=== PATIENT | female | born 1950 | race Caucasian/White ===

== ENCOUNTER → 2022-10-11 | Outpatient (OUT) | payer MEDICARE, OTHER, SELFPAY ==
--- NOTE | 2022-10-11 09:35 | XR_ITS ---
The [address] [address] Patient Name: TALIA ACKERMAN MRN: [id number] date: 1950 Sex: F Assigned Patient Location: [facility] Current Patient Location: [facility] Accession/Order Number: [id number] Exam Date: 10/11/2022 09:35 Report Date: 10/11/2022 13:32 At the request of: MANAV VASQUEZ Procedure: XR foot RT min 3V PROCEDURE: XR foot RT min 3V HISTORY: RIGHT FOOT PAIN COMPARISON: XR foot right 03/09/2022 FINDINGS: BONES:Mechanical fusion of the first metatarsophalangeal joint via dorsal plate and screws. Prosthetic spacer within first metatarsophalangeal joint. Prior bone harvesting from distal tibia. Mild degenerative joint disease throughout the foot. Degenerative calcaneal plantar spurring. SOFT TISSUES:No visible soft tissue swelling. EFFUSION:None visible. OTHER: Negative. IMPRESSION: 1. Stable surgical changes without evidence of hardware failure or change in alignment. Electronically authenticated by: DOMENIC MORGAN Date: 10/11/2022 13:32
== END ==
LOC: RAD 09:34
PROVIDERS: PCP Podiatrist Foot & Ankle Surgery; Visit Provider Podiatrist Foot & Ankle Surgery
DX: M79.671 Pain in right foot (principal)
CPT/HCPCS: 73630

== ENCOUNTER 2023-01-16 13:00 | Outpatient (OUT) | payer MEDICARE, OTHER, SELFPAY ==
--- NOTE | 2023-01-16 13:52 | CT_ITS ---
The [address] [address] Patient Name: TALIA ACKERMAN MRN: [id number] date: 1950 Sex: F Assigned Patient Location: CT Current Patient Location: CT Accession/Order Number: [id number] Exam Date: 01/16/2023 13:46 Report Date: 01/16/2023 14:43 At the request of: MANAV VASQUEZ Procedure: CT foot RT wo con CT foot RT wo con, 01/16/2023 1:46 PM EDT INDICATION: Hallux rigidus, right foot M20.21 COMPARISON: This study was compared to the prior x-ray dated 10/11/2022 TECHNIQUE: Axial images of 2 mm are obtained from right foot with coronal and sagittal reconstructions and without injection of contrast. Dose reduction techniques were achieved by using automated exposure control and/or adjustment of mA and/or kV according to patient size and/or use of iterative reconstruction technique. FINDINGS: There is status post right metatarsophalangeal joint ankylosis with spacer insertion. No hardware fracture or loosening is noted. The tip of the screws through the proximal phalanx and the distal first metatarsal bones exceed the inferior cortex. There is no fracture or dislocation. Defect within the distal tibial likely due to prior harvesting. There is diffuse demineralization of bone. There are anterior and posterior calcaneal spurs. Angular deformity of the second through fourth toes is noted. There is not soft tissue abnormality. No foreign bodies are noted. The remainder of joint spaces are preserved. 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 Electronically authenticated by: HARISH CASTAÑEDA Date: 01/16/2023 14:43
== END 2023-01-16 13:01 | disposition home or self-care (01) ==
LOC: CT 13:00
PROVIDERS: PCP Student in an Organized Health Care Education/Training Program; Visit Provider Podiatrist Foot & Ankle Surgery
DX: M20.21 Hallux rigidus, right foot (principal)
CPT/HCPCS: 73700

== ENCOUNTER 2024-01-30 10:38 | Outpatient (OUT) | payer MEDICARE, OTHER, SELFPAY ==
--- NOTE | 2024-01-30 | XR_ITS ---
The [address] [address] Patient Name: TALIA ACKERMAN MRN: [id number] date: 1950 Sex: F Assigned Patient Location: Current Patient Location: Accession/Order Number: [id number] Exam Date: 01/30/2024 10:55 Report Date: 02/01/2024 05:34 At the request of: MANAV VASQUEZ Procedure: XR foot RT min 3V PROCEDURE: XR foot RT min 3V HISTORY: RIGHT FOOT PAIN COMPARISON: XR foot right 10/11/2022 FINDINGS: BONES:Prior spacer placement and mechanical fusion of the first metatarsophalangeal joint; no appreciable hardware fracture or loosening. Prominent degenerative enthesopathic spurring of the calcaneus. SOFT TISSUES:No visible soft tissue swelling. EFFUSION:None visible. OTHER: Negative. XR/XR foot RT min 3V IMPRESSION: 1. Stable surgical changes without evidence of hardware failure or change in alignment. 2. Stable degenerative changes. Electronically authenticated by: DOMENIC MORGAN Date: 02/01/2024 05:34
== END 2024-01-30 10:39 | disposition home or self-care (01) ==
LOC: EC 10:38
PROVIDERS: PCP Student in an Organized Health Care Education/Training Program; Visit Provider Podiatrist Foot & Ankle Surgery
DX: M79.671 Pain in right foot (principal)
CPT/HCPCS: 73630

== ENCOUNTER 2025-01-30 09:02 | Outpatient (OUT) | payer MEDICARE, SELFPAY ==
--- OUTSIDE RECORDS SUMMARY | 2025-01-29 06:00 | XMS_ITS ---
Author Organization The [facility] Address [address] [place] [address] Care Team Providers Care Precast Concrete Products Installer Name Role Phone Mignon Diallo MD Primary Care Provider Addison Albright [phone] REASON FOR VISIT 1 year f/u Encounters Encounter Location Date Provider Diagnosis The [facility] (PODIATRY) [address] [place] [address] [address] [place] [address] 01/29/2025 Addison Corral Plan Of Treatment No Information Progress Notes * Jackeline ACKERMANDOB: [birth year] (74 yo F)Acc No.[id number]:01/29/2025 UNLOCKED PROGRESS NOTE Follow Up Patient: Jackeline WHITLOCK Provider: Catrachito Corral DPM, MS :1950 A ge:74 Y S ex:Female Date:01/29/2025 Address:[address], [id number] Pcp:Mignon Diallo MD Subjective: * Chief Complaints: * 1 . 1 year f/u. * Medical History: Objective: * Vitals: Assessment: Plan: * Treatment: * * Electronic signature of Brian Corral DPM on 01/30/2025 at 09:06 AM EDT Sign off status: Pending Visit Status: O FF CANC (OFFICE CANCEL) * Provider: Catrachito Corral DPM, MS Date: 01/29/2025 Generated for Printi ng/Faxing/eTransmitting on: 0 01/30/2025 09:06 AM EDT
--- OUTSIDE RECORDS SUMMARY | 2025-01-30 09:06 | XMS_ITS | Encounter Summary ---
Author Organization [facility] Address [address] [place] [address] Care Team Providers Care Simulation Engineer Name Role Phone Felicia Doty MD Primary Care Provider + Mignon Diallo MD Primary Care Provider [phone] Encounter Details Date Type Department Care Team (Late st Contact Info) Description 10/11/2022 Clinisync Result Encounter [facility] External Department Unsolicited Teo Marie DO [address] [place] [address] Social History Tobacco Use Types Packs/Day Years Used Date Smoking Tobacco: Never Smokeless Tobacco: Never Alcohol Use Standard Drinks/Week Comments Yes 0 (1 standard drink = 0.6 oz pur e alcohol) Comments Unknown Sex and Gender Information Value Date Recorded Sex Assigned at Not on file Legal Sex Female 6:47 PM EDT Gender Identity Not on file Sexual Orientation Not on file documented as of this encounter Plan of Treatment Upcoming Encounters Date Type Department Care Team (Late st Contact Info) Description 10/30/2025 8:30 AM EDT Office Visit [facility] [address] [place] [id number] Teo Marie DO [address] [place] [address] documented as of this encounter Procedures Procedure Name Priority Date/Time Associated Diagnosis Comments CT UPPER EXTREMITY W/O CONTRAST RIGHT 10/11/2022 4:47 PM EDT documented in this encounter Results * CT UPPER EXTREMITY W/O CONTRAST RIGHT (10/11/2022 4:47 PM EDT) Anatomical Region Laterality Modality Other 10/11/2022 4:47 PM EDT Narrative 10/13/2022 5:11 PM EDT Exam Date/Time: 10/11/2022 17:01 EDT Reason for Exam: M75.101 M19.011 Report IMPRESSION: CT FOR SHOULDER PROSTHESIS CREATION. MODERATELY ADVANCED OSTEOARTHROSIS OF THE RIGHT SHOULDER. EXAM: CT Upper Extremity w/o Contrast Right DATE: 10/11/2022 CLINICAL HISTORY: M75.101 M19.011. COMPARISON: Right shoulder MRI 12/18/2019 and radiographs 11/25/2019. TECHNIQUE: Spiral unenhanced imaging was obtained of the right upperextremity for prosthesis creation, using Tornier protocol. All CT scans at this facility use dose modulation, iterative reconstruction, and/or weight based dosing when appropriate to reduce radiation dose to as low as reasonably achievable. FINDINGS: Moderate osteoarthritic changes are present in the acromioclavicular and glenohumeral joints. There is no fracture, dislocation, acromioclavicular joint separation, significant muscle atrophy narrowing of the subacromial space, pathologic calcifications, or other findings of concern identified elsewhere. Ordering Provider: Teo Marie FINAL REPORT Dictated: 10/13/2022 5:08 pm Cruz Everett MD Signed (Electronic Signature): 10/13/2022 5:08 pm Signed by: Cruz Everett MD Transcribed by: TRINA Technologist: TAMELA Procedure Note Radiology, Radiologist, - 10/13/2022 Exam Date/Time: 10/11/2022 17:01 EDT Reason for Exam: M75.101 M19.011 Report IMPRESSION: CT FOR SHOULDER PROSTHESIS CREATION. MODERATELY ADVANCED OSTEOARTHROSIS OF THE RIGHT SHOULDER. EXAM: CT Upper Extremity w/o Contrast Right DATE: 10/11/2022 CLINICAL HISTORY: M75.101 M19.011. COMPARISON: Right shoulder MRI 12/18/2019 and radiographs 11/25/2019. TECHNIQUE: Spiral unenhanced imaging was obtained of the rightupperextremity for prosthesis creation, using Tornier protocol. All CT scans at this facility use dose modulation, iterativereconstruction, and/or weight based dosing when appropriate to reduce radiation dose to as low asreasonably achievable. FINDINGS: Moderate osteoarthritic changes are present in the acromioclavicular andglenohumeral joints. There is no fracture, dislocation, acromioclavicular joint separation,significant muscle atrophy narrowing of the subacromial space, pathologiccalcifications, or other findings of concern identified elsewhere. Ordering Provider: Teo Marie FINAL REPORT Dictated: 10/13/2022 5:08 pm Cruz Everett MD Signed (Electronic Signature): 10/13/2022 5:08 pm Signed by: Cruz Everett MD Transcribed by: TRINA Technologist: TAMELA us Teo Marie DO [facility] Final Resu lt documented in this encounter Visit Diagnoses Not on filedocumented in this encounter Care Teams Simulation Engineer Relationship Specialty Start Date End Date Felicia Doty MD [address] [place] [address] PCP - General Physician Customer Technical Services Manager 09/29/22 11/14/22 Mignon Diallo MD [address] [place] [address] PCP - General Family Medicine 11/15/22 documented as of this encounter
--- OUTSIDE RECORDS SUMMARY | 2025-01-30 09:06 | XMS_ITS | Encounter Summary ---
Author Organization [facility] Address [address] [place] [address] Care Team Providers Care Windmill Technician Name Role Phone Mignon Diallo MD Primary Care Provider [phone] Encounter Details Date Type Department Care Team (Late st Contact Info) Description 11/25/2022 Abstract [facility] [place] [facility] [address] [place] [address] Mignon Diallo MD [address] [place] [address] Social History Tobacco Use Types Packs/Day Years Used Date Smoking Tobacco: Never Smokeless Tobacco: Never Alcohol Use Standard Drinks/Week Comments Yes 0 (1 standard drink = 0.6 oz pure alcohol) Caffeine intake: 1-2 cups per day green tea Humiliation, Afraid, Rape, and Kick questionnair e Answer Date Recorded Within the last year, have y ou been afraid of your partner or ex-partner? No 10/17/2022 Within the last year, have y ou been humiliated or emotionally abused in other ways by your partner or ex-partner? No Within the last year, have y ou been kicked, hit, slapped, or otherwise physically hurt by your partner or ex-partner? No 10/17/2022 Within the last year, have y ou been raped or forced to have any kind of sexual activity by your partner or ex-partner? No 10/17/2022 Social Connection and Isolat ion Panel [NHANES] Answer Date Recorded In a typical week, how many times do you talk on the phone with family, friends, or neighbors? More than three times a week 10/17/2022 How often do you get togethe r with friends or relatives? More than three times a week 10/17/2022 How often do you attend chur or catholic services? More than 4 times per year 10/17/2022 Do you belong to any clubs o r organizations such as alevism groups, unions, fraternal or athletic groups, or school groups? Yes 10/17/2022 How often do you attend meet ings of the clubs or organizations you belong to? More than 4 times per year 10/17/2022 Are you , , di vorced, , never , or living with a partner? 10/17/2022 AUDIT-C Answer Date Recorded Q1: How often do you have a drink containing alcohol? 4 or more times a week 10/17/2022 Q2: How many drinks containi ng alcohol do you have on a typical day when you are drinking? 3 or 4 Q3: How often do you have si x or more drinks on one occasion? Never 10/17/2022 Overall Financial Resource Strain (CARDIA) Answe r Date Recorded How hard is it for you to pa y for the very basics like food, housing, medical care, and heating? Not hard at all 10/17/2022 PHQ-2 Answer Date Recorded Patient Health Questionnaire-2 Score 0 11/15/2022 [facility] - Occupational Stress Questionnaire Answer Date Recorded Do you feel stress - tense, restless, nervous, or anxious, or unable to sleep at night because your mind is troubled all the time - these days? Not at all 10/17/2022 Exercise Vital Sign Answer Date Recorde d On average, how many days pe r week do you engage in moderate to strenuous exercise (like a brisk walk)? 7 days 10/17/2022 On average, how many minutes do you engage in exercise at this level? 30 min 10/17/2022 Hunger Vital Sign Answer Date Recorded Within the past 12 months, y ou worried that your food would run out before you got the money to buy more. Never true 10/18/19 23 Within the past 12 months, t he food you bought just didn't last and you didn't have money to get more. Never true 10/17/2022 PRAPARE - Transportation Answer Date Re corded In the past 12 months, has l ack of transportation kept you from medical appointments or from getting medications? No 10/06 In the past 12 months, has l ack of transportation kept you from meetings, work, or from getting things needed for daily living? No 10/17/2022 Housing Stability Vital Sign Answer Nagi e Recorded In the last 12 months, was t here a time when you were not able to pay the mortgage or rent on time? No 10/17/2022 In the last 12 months, how many places have you lived? 2 10/17/2022 In the last 12 months, was t here a time when you did not have a steady place to sleep or slept in a senior care (including now)? No 10/17/2022 Comments Unknown Sex and Gender Information Value Date Recorded Sex Assigned at Not on file Legal Sex Female 6:47 PM EDT Gender Identity Not on file Sexual Orientation Not on file documented as of this encounter Plan of Treatment Upcoming Encounters Date Type Department Care Team (Late st Contact Info) Description 10/30/2025 8:30 AM EDT Office Visit [facility] [address] [place] [address] Teo Marie, DO [address] [place] [address] documented as of this encounter Visit Diagnoses Not on filedocumented in this encounter Care Teams Windmill Technician Relationship Specialty Start Date End Date Mignon Diallo MD [address] [place] [address] PCP - General Family Medicine 11/15/22 documented as of this encounter
--- OUTSIDE RECORDS SUMMARY | 2025-01-30 09:06 | XMS_ITS | Clinical Summary ---
Author Organization [facility] Address [address] [place] [phone] Phone Care Team Providers Care Spring Floor Service Worker Name Role Phone Unavailable Primary Care Provider Unavailabl e Social History Tobacco Use Types Packs/Day Years Used Date Smoking Tobacco: Never Assessed Comments Unknown Sex and Gender Information Value Date Recorded Sex Assigned at Not on file Legal Sex Female 4:27 PM EST Gender Identity Not on file Sexual Orientation Not on file Plan of Treatment Health Maintenance Due Date Last Done Comments Lipid Panel 1950 Yearly Adult Physical 1950 Hepatitis C Screening 1966 DTaP/Tdap/Td Vaccines (1 - Tdap) 1970 Pneumococcal Vaccine (1 of 1 - PCV) 1998 Zoster Vaccines (1 of 2) 1998 Bone Density Scan 2013 RSV High Risk: (Elderly (60+ ) or Population) (1 - 1-dose 75+ series) 2023 COVID-19 Vaccine (1 - 2023-2 5 season) 2025 Influenza Vaccine (#1) 2025 HIB Vaccines Aged Out No longer eligi ble based on patient's age to complete this topic HPV Vaccines Aged Out No longer eligi ble based on patient's age to complete this topic Hepatitis A Vaccines Aged Out No long er eligible based on patient's age to complete this topic Hepatitis B Vaccines Aged Out No long er eligible based on patient's age to complete this topic IPV Vaccines Aged Out No longer eligi ble based on patient's age to complete this topic Meningococcal Vaccine Aged Out No juan lynn eligible based on patient's age to complete this topic Rotavirus Vaccines Aged Out No longer eligible based on patient's age to complete this topic
--- OUTSIDE RECORDS SUMMARY | 2025-01-30 09:06 | XMS_ITS | Encounter Summary ---
Author Organization [facility] Address [address] [place] [address] Care Team Providers Care Facilities Engineering Manager Name Role Phone Mignon Diallo MD Primary Care Provider [phone] Encounter Details Date Type Department Care Team (Late st Contact Info) Description 11/16/2022 Clinisync Result Encounter [facility] External Department Unsolicited Mignon Diallo MD [address] [place] [address] Social History Tobacco Use Types Packs/Day Years [...] 10/17/2022 How often do you attend chur ch or anabaptist services? More than 4 times per year 10/17/2022 Do you belong to any clubs o r organizations such as latter-day groups, unions, fraternal or athletic groups, or [...] Recorded Patient Health Questionnaire-2 Score 0 11/15/2022 [facility] - Occupational Stress Questionnaire Answer Date Recorded [...] place to sleep or slept in a residential (including now)? No 10/17/2022 Comments Unknown Sex and Gender Information Value Date Recorded Sex Assigned at Not on file Legal Sex Female 6:47 PM EDT Gender Identity Not on file Sexual Orientation Not on file COVID-19 Exposure Response Date Recorded In the last 10 days, have yo u been in contact with someone who was confirmed or suspected to have Coronavirus/COVID-19? No / Unsure 10/19/2022 8:44 AM EDT documented as of this encounter Plan of Treatment Upcoming Encounters Date Type Department Care Team (Late st Contact Info) Description 10/30/2025 8:30 AM EDT Office Visit [facility] [address] [place] [phone] Teo Marie DO [address] [place] [address] documented as of this encounter Procedures Procedure Name Priority Date/Time Associated Diagnosis Comments MA MAMM SCREEN W/CAD IF PERF AND 3D HALLE 11/16/2022 3:16 PM EDT documented in this encounter Results * MA MAMM SCREEN W/CAD IF PERF AND 3D HALLE (11/16/2022 3:16 PM EDT) Anatomical Region Laterality Modality Other 11/16/2022 3:16 PM EDT Narrative 11/17/2022 2:32 PM EDT Exam Date/Time: 11/16/2022 15:38 EDT Reason for Exam: Z12. Report IMPRESSION: BIRADS 1 NEGATIVE, NORMAL INTERVAL FOLLOW-UP. EXAMINATION: MA Mamm Screen w/CAD if perf and 3D Halle CLINICAL HISTORY: Z05.07 COMPARISON: Priors dating back to 2016. RESULT: Digital mammography and 3D tomosynthesis of bilateral breasts was performed. Almost entirely fatty. There is no suspicious mass, asymmetry, architectural distortion, or calcification. CAD analysis was performed and used in the interpretation. Dense Breast: No Follow-up: 12 MONTH RECALL. Board Certified Radiologists. Accredited by the ACR and FDA. MAMMOGRAPHY IS VERY IMPORTANT TO YOUR HEALTH. THE [place] [employer] GUIDELINES RECOMMEND THAT WOMEN 40 YEARS OF AGE AND OLDER SHOULD HAVE A MAMMOGRAM EVERY YEAR. A REMINDER LETTER WILL BE SENT AT THE APPROPRIATE TIME. THIS FACILITY UTILIZES A REMINDER SYSTEM TO ENSURE ALL PATIENTS RECEIVE REMINDER NOTIFICATIONS AT THE APPROPRIATE TIME BASED ON THE RECOMMENDATIONS OF THIS EXAM. THIS INCLUDES REMINDERS FOR ROUTINE SCREENING MAMMOGRAMS, DIAGNOSTIC MAMMOGRAMS IN WHICH THE PATIENT IS ASKED TO RETURN FOR ADDITIONAL VIEWS, OR OTHER BREAST IMAGING INTERVENTIONS WHEN APPROPRIATE. THE PATIENT WILL BE PLACED IN THE APPROPRIATE REMINDER SYSTEM INCLUDING A REMINDER AT THE APPROPRIATE TIME FOR ANY PENDING ADDITIONAL VIEWS. Ordering Provider: Mignon Diallo FINAL REPORT Dictated: 11/17/2022 2:29 pm Felipe Royal MD Signed (Electronic Signature): 11/17/2022 2:29 pm Signed by: Felipe Royal MD Transcribed by: DP Technologist: AP Assessment: BI-RADS Category 1-Negative Recommendation: Normal interval follow-up Procedure Note Radiology, Radiologist, - 11/17/2022 Exam Date/Time: 11/16/2022 15:38 EDT Reason for Exam: Z12. Report IMPRESSION: BIRADS 1 NEGATIVE, NORMAL INTERVAL FOLLOW-UP. EXAMINATION: MA Mamm Screen w/CAD if perf and 3D Halle CLINICAL HISTORY: Z05.07 COMPARISON: Priors dating back to 2016. RESULT: Digital mammography and 3D tomosynthesis of bilateral breasts wasperformed. Almost entirely fatty. There is no suspicious mass, asymmetry, architectural distortion, orcalcification. CAD analysis was performed and used in the interpretation. Dense Breast: No Follow-up: 12 MONTH RECALL. Board Certified Radiologists. Accredited by the ACR and FDA. MAMMOGRAPHY IS VERY IMPORTANT TO YOUR HEALTH. THE [place] [employer]UIDELINES RECOMMEND THAT WOMEN 40 YEARS OF AGE AND OLDER SHOULD HAVE A MAMMOGRAMEVERY YEAR. A REMINDER LETTER WILL BE SENT AT THE APPROPRIATE TIME. THIS FACILITYUTILIZES A REMINDER SYSTEM TO ENSURE ALL PATIENTS RECEIVE REMINDER NOTIFICATIONS ATTHE APPROPRIATE TIME BASED ON THE RECOMMENDATIONS OF THIS EXAM. THIS INCLUDESREMINDERS FOR ROUTINE SCREENING MAMMOGRAMS, DIAGNOSTIC MAMMOGRAMS IN WHICH THEPATIENT IS ASKED TO RETURN FOR ADDITIONAL VIEWS, OR OTHER BREAST IMAGING INTERVENTIONSWHEN APPROPRIATE. THE PATIENT WILL BE PLACED IN THE APPROPRIATE REMINDER SYSTEMINCLUDING A REMINDER AT THE APPROPRIATE TIME FOR ANY PENDING ADDITIONAL VIEWS. Ordering Provider: Mignon Diallo FINAL REPORT Dictated: 11/17/2022 2:29 pm Felipe Royal MD Signed (Electronic Signature): 11/17/2022 2:29 pm Signed by: Felipe Royal MD Transcribed by: TRINA Technologist: AP Assessment: BI-RADS Category 1-Negative Recommendation: Normal interval follow-up us Mignon Diallo MD [facility] Final Resul t documented in this encounter Visit Diagnoses Not on filedocumented in this encounter Care Teams Facilities Engineering Manager Relationship Specialty Start Date End Date Mignon Diallo MD [address] [place] [address] PCP - General Family Medicine 11/15/22 documented as of this encounter
--- OUTSIDE RECORDS SUMMARY | 2025-01-30 09:06 | XMS_ITS | Encounter Summary ---
Author Organization [facility] Address [address] [place], [place] [address] Care Team Providers Care Temper Mill Operator Name Role Phone Felicia Doty MD Primary Care Provider + Source Comments In the event this information is protected by the Federal Confidentiality of Alcohol and Drug AbusePatient Records regulations: The Federal rules restrict any use of the information to criminally investigate or prosecute any alcohol or drug abuse patient.[facility] Encounter Details Date Type Department Care Team (Latest Contact Info) Description 11/22/2005 Prob Sum Review Provider, [facility] Social History Tobacco Use Types Packs/Day Years Used Date Smoking Tobacco: Never Assessed Comments Unknown Sex and Gender Information Value Date Recorded Sex Assigned at Not on file Legal Sex Female 9:15 AM EST Gender Identity Not on file Sexual Orientation Not on file documented as of this encounter Plan of Treatment Not on file documented as of this encounter Visit Diagnoses Not on filedocumented in this encounter Care Teams Temper Mill Operator Relationship Specialty Start Date End Date Felicia Doty MD PCP - General 06/16/05 documented as of this encounter
--- OUTSIDE RECORDS SUMMARY | 2025-01-30 09:06 | XMS_ITS | Encounter Summary ---
Author Organization [facility] Address [address] [place] [address] Care Team Providers Care Enterostomal Therapy Nurse Name Role Phone Mignon Diallo MD Primary Care Provider [phone] Encounter Details Date Type Department Care Team (Late st Contact Info) Description 11/21/2022 Clinisync Result Encounter [facility] External [facility] Unsolicited Teo Marie, DO [address] [place] [address] Social History Tobacco Use Types [...] How often do you attend chur or gnosticism services? More than 4 times per year 10/17/2022 Do you belong to any clubs o r organizations such as congregation groups, unions, fraternal or athletic groups, or [...] Recorded Patient Health Questionnaire-2 Score 0 11/15/2022 [facility] - Occupational Stress Questionnaire Answer Date [...] place to sleep or slept in a [facility] (including now)? No 10/17/2022 Comments Unknown Sex and Gender Information Value Date Recorded Sex Assigned at Not on file Legal Sex Female 6:47 PM EDT Gender Identity Not on file Sexual Orientation Not on file documented as of this encounter Plan of Treatment Upcoming Encounters Date Type Department Care Team (Late st Contact Info) Description 10/30/2025 8:30 AM EDT Office Visit [facility] [address] [place] [id number] Teo Marie, [address] [place] [address] documented as of this encounter Procedures Procedure Name Priority Date/Time Associated Diagnosis Comments XR SHOULDER COMPLETE RIGHT 11/21/2022 2:17 PM EDT documented in this encounter Results * XR SHOULDER COMPLETE RIGHT (11/21/2022 2:17 PM EDT) Anatomical Region Laterality Modality Other 11/21/2022 2:17 PM EDT Narrative 11/21/2022 5:19 PM EDT Exam Date/Time: 11/21/2022 14:31 EDT Reason for Exam: Post Op Report IMPRESSION: Postsurgical changes of right shoulder arthroplasty. EXAM: XR Shoulder Complete Right HISTORY: Postoperative evaluation shoulder arthroplasty TECHNIQUE: Frontal and lateral views of the right shoulder COMPARISON: Shoulder radiographs 11/25/2019 FINDINGS: Postsurgical changes of shoulder arthroplasty including soft tissue emphysema. The humeral head component appears to articulate with the posterior aspect of the glenoid component. No periprosthetic abnormality. Ordering Provider: Teo Marie FINAL REPORT Dictated: 11/21/2022 5:16 pm Johnathon Johnson DO Signed (Electronic Signature): 11/21/2022 5:16 pm Signed by: Johnathon Johnson DO Transcribed by: TRINA Technologist: PAUL Technical Comments Radiation Dose: Ka,r in mGy = na DAP = na Procedure Note Radiology, Radiologist, MD - 11/21/2022 Exam Date/Time: 11/21/2022 14:31 EDT Reason for Exam: Post Op Report IMPRESSION: Postsurgical changes of right shoulder arthroplasty. EXAM: XR Shoulder Complete Right HISTORY: Postoperative evaluation shoulder arthroplasty TECHNIQUE: Frontal and lateral views of the right shoulder COMPARISON: Shoulder radiographs 11/25/2019 FINDINGS: Postsurgical changes of shoulder arthroplasty including soft tissueemphysema. The humeral head component appears to articulate with the posterior aspect ofthe glenoid component. No periprosthetic abnormality. Ordering Provider: Teo Marie FINAL REPORT Dictated: 11/21/2022 5:16 pm Johnathon Johnson DO Signed (Electronic Signature): 11/21/2022 5:16 pm Signed by: Johnathon Johnson DO Transcribed by: TRINA Technologist: PAUL Technical Comments Radiation Dose: Ka,r in mGy = na DAP = na Teo Marie DO [facility] Final Resu lt documented in this encounter Visit Diagnoses Not on filedocumented in this encounter Care Teams Enterostomal Therapy Nurse Relationship Specialty Start Date End Date Mignon Diallo MD [address] [place] [address] PCP - General Family Medicine 11/15/22 documented as of this encounter
--- OUTSIDE RECORDS SUMMARY | 2025-01-30 09:06 | XMS_ITS | Encounter Summary ---
Author Organization [facility] Address [address] [place] [address] Care Team Providers Care Greens Laborer Name Role Phone Mignon Diallo MD Primary Care Provider Encounter Details Date Type Department Care Team (Late st Contact Info) Description 01/17/2025 Results Follow-Up [facility] [place] [facility] [address] [place] [address] Mignon Diallo MD [address] [place] [address] Cologuard colon cancer screening Social History Tobacco Use Types Packs/Day Years Used Date Smoking Tobacco: Never Smokeless Tobacco: Never Alcohol Use Standard Drinks/Week Comments Yes 12 (1 standard drink = 0.6 oz pure [...] often do you attend chur ch or pentecostalism services? More than 4 times per year 10/17/2022 Do you belong to any clubs o r organizations such as sabianism groups, unions, fraternal or athletic groups, or [...] Date Recorded Patient Health Questionnaire-2 Score 0 11/27/2024 [facility] - Occupational Stress Questionnaire Answer Date Recorded [...] senior care (including now)? No 10/17/2022 Comments No Sex and Gender Information Value Date Recorded Sex Assigned at Not on file Legal Sex Female 6:47 PM EDT Gender Identity Not on file Sexual Orientation Not on file documented as of this encounter Plan of Treatment Upcoming Encounters Date Type Department Care Team (Late st Contact Info) Description 10/30/2025 8:30 AM EDT Office Visit [facility] [address] [facility] [place] [phone] Teo Marie DO [address] [place] [address] documented as of this encounter Goals Goal Patient Goal Type Associated Problems Recent Progress Patient-Stated? Author The patient will achieve at least 4/5 R UE muscle strength in order to improve ability to perform ADLs and return to PLOF General Improving( 9:44 AM EDT) No Chas Torres PT Patient will achieve at least 140 degrees of right shoulder flexion and abduction AROM to improve functional mobility General Improving( 9:44 AM EDT) No Chas Torres PT Patient will achieve a Quick DASH score of 24/55 or better in order to demonstrate overall functional improvement General Improving( 9:44 AM EDT) No Chas Torres, PT The patient will have decreased average pain to 2/10 or less during functional activities General Improving( 9:44 AM EDT) No Chas Torres, PT documented as of this encounter Visit Diagnoses Not on filedocumented in this encounter Additional Health Concerns Assessment Noted Time PHQ-9 Depression Total Score: 0 11/20/19 24 8:00 AM EDT documented as of this encounter Care Teams Greens Laborer Relationship Specialty Start Date End Date Mignon Diallo MD [address] [place] [address] PCP - General Family Medicine 11/15/22 documented as of this encounter
--- OUTSIDE RECORDS SUMMARY | 2025-01-30 09:06 | XMS_ITS | Encounter Summary ---
Author Organization [facility] Address [address] [place] [address] Care Team Providers Care Extern Name Role Phone Mignon Diallo MD Primary Care Provider [phone] Encounter Details Date Type Department Care Team (Late st Contact Info) Description 01/08/2025 Orders Only [facility] [address] [place] [address] Alicia Barrios Encounter for screening mammogram for malignant neoplasm of breast Social History Tobacco Use Types Packs/Day Years [...] How often do you attend chur or restorationism services? More than 4 times per year 10/17/2022 Do you belong to any clubs o r organizations such as roman catholic groups, unions, fraternal or athletic groups, or [...] Recorded Patient Health Questionnaire-2 Score 0 11/27/2024 [facility] - Occupational Stress Questionnaire Answer Date [...] place to sleep or slept in a half-way (including now)? No 10/17/2022 Comments No Sex and Gender Information Value Date Recorded Sex Assigned at Not on file Legal Sex Female 6:47 PM EDT Gender Identity Not on file Sexual Orientation Not on file documented as of this encounter Plan of Treatment Upcoming Encounters Date Type Department Care Team (Late st Contact Info) Description 10/30/2025 8:30 AM EDT Office Visit [facility] [address] [place] [phone] Teo Marie DO [address] [place] [address] documented as of this encounter Goals Goal [...] 9:44 AM EDT) No Chas Torres PT The patient will have decreased average pain to 2/10 or less during functional activities General Improving( 9:44 AM EDT) No Chas Torres, PT documented as of this encounter Procedures Procedure Name Priority Date/Time Associated Diagnosis Comments BI MAMMOGRAM SCREENING TOMOSYNTHESIS BILATERAL Routine 01/08/2025 12:08 PM EDT Encounter for screening mammogram for malignant neoplasm of breast documented in this encounter Results * Bilateral screening mammogram with tomosynthesis (01/08/2025 12:08 PM EDT) us Mignon Diallo MD IMG BI PROCEDURES Final Resul t documented in this encounter Visit Diagnoses Diagnosis Encounter for screening mammogram for malignant neoplasm of breast documented in this encounter Additional Health Concerns Assessment Noted Time PHQ-9 Depression Total Score: 0 11/20/19 24 8:00 AM EDT documented as of this encounter Care Teams Extern Relationship Specialty Start Date End Date Mignon Diallo MD [address] [place] [address] PCP - General Family Medicine 11/15/22 documented as of this encounter
--- OUTSIDE RECORDS SUMMARY | 2025-01-30 09:06 | XMS_ITS | Clinical Summary ---
Author Organization [facility] Address [address] [place] [id number] Care Team Providers Care Multifold Operator Name Role Phone Felicia Doty MD Primary Care Provider + Social History Tobacco Use Types Packs/Day Years Used Date Smoking Tobacco: Never Assessed Area Deprivation Index Answer Date John rded National Score (1-100), lower number is lower ri sk Not on file 04/14/2020 State Score (1-10), lower number is lower risk N ot on file 04/14/2020 Data from: https://www.neighborhoodatlas.medicine.[facility]/. Last address used for calculation Not on file 04/14/2020 Comments Unknown Sex and Gender Information Value Date Recorded Sex Assigned at Not on file Legal Sex Female 9:15 AM EST Gender Identity Not on file Sexual Orientation Not on file Plan of Treatment Health Maintenance Due Date Last Done Comments Anxiety Screening 1966 Depression Screening 1966 Hepatitis C Screening 1966 DTaP,Tdap,Td Vaccine (1 - Tdap) 1967 Diabetes Screening 1993 Pneumococcal Vaccine: 50+ (1 of 1 - PCV) 1998 Shingrix Vaccine (1 of 2) 1998 Bone Density Screening 2013 RSV Vaccine (1 - 1-dose 75+ series) 2023 Advance Directive Discussion 05/08/2024 Influenza Vaccine (#1) 2025 Insurance MEDICARE HOSPITAL/[facility] Care Teams Multifold Operator Relationship Specialty Start Date End Date Felicia Doty MD PCP - General 06/16/05
--- OUTSIDE RECORDS SUMMARY | 2025-01-30 09:06 | XMS_ITS | Clinical Summary ---
Author Organization [facility] Address [address] [place] [address] Care Team Providers Care Metal Bonding Crib Attendant Name Role Phone Mignon Diallo MD Primary Care Provider [phone] Allergies Active Allergy Reactions Criticality Noted Date Comments Bee Venom Unknown High 03/15/2006 Other Reaction(s): Shortness of breath Honey Bee Venom 10/17/2022 Nabumetone Hives,Unknown Medium 03/15/2006 Poison Patti Extract 10/29/2024 Other Reaction(s): Not available Pravastatin Hives Medium 05/08/2017 Red Dye #40 (Allura Red) Unknown 10/01/2022 Yellow Jacket Venom Shortness of breath High 024 Medications EPINEPHrine (Epipen) 0.3 MG/0.3ML injection syringe INJECT 1 AUTO-INJECT OR EVERY DAY NEEDED Active Active Problems Problem Noted Date Diagnosed Date Primary osteoarthritis of right shoulder 023 Rotator cuff arthropathy of right shoulder 10/19 History of reverse total rep lacement of right shoulder joint 10/17/2022 Hyperlipidemia, mixed 10/17/2022 Assessment & Plan (11/20/2023 11:03 AM EDT): Stable, continue to monitor. No change in regimen. Assessment & Plan (11/15/2022 1:58 PM EDT): Stable, continue to monitor. No change in regimen. Perennial allergic rhinitis 10/17/2022 Tendinosis of rotator cuff 10/17/2022 Acquired hallux rigidus 10/01/2022 Contracture, right ankle 10/01/2022 Atherosclerosis of aorta 08/07/2019 Assessment & Plan (11/20/2023 11:03 AM EDT): Stable, continue to monitor. No change in regimen. Assessment & Plan (11/15/2022 1:57 PM EDT): Stable, continue to monitor. No change in regimen. Generalized osteoarthritis 08/07/2019 Assessment & Plan (11/20/2023 11:03 AM EDT): Stable, continue to monitor. No change in regimen. Assessment & Plan (11/15/2022 1:57 PM EDT): Stable, continue to monitor. No change in regimen. Calcaneal spur 08/05/2018 Resolved Problems Problem Noted Date Diagnosed Date Resolved Date Anemia 10/17/2022 10/18/2022 Decreased GFR 10/17/2022 10/18/2022 Decreased libido 10/17/2022 11/27/2024 Breast cancer screening by mammogram 10/17/2022 10/18/2022 Dietary counseling 10/17/2022 3 Gum lesion 10/17/2022 10/18/2022 Scanned copy of advance directives on file 10/17/2022 11/20/2023 Simple obesity 10/17/2022 10/18/2022 Obesity 10/17/2022 11/20/2023 Statin not tolerated 10/17/2022 024 Assessment & Plan (11/15/2022 1:58 PM EDT): Stable, continue to monitor. No change in regimen. Acute pain of right shoulder 04/14/2021 11/20/2023 Pure hypercholesterolemia 02/23/2017 Stage 2 chronic kidney disease 07/05/2016 11/20/2023 Assessment & Plan (11/15/2022 1:57 PM EDT): Stable, continue to monitor. No change in regimen. Encounters Date Type Department Care Team Description 01/17/2025 Results Follow-Up [facility] [address] [place] [address] Mignon Diallo MD Cologuard colon cancer screening 01/08/2025 Orders Only [facility] [address] [place] [address] Alicia Barrios Encounter for screening mammogram for malignant neoplasm of breast 01/07/2025 Results Follow-Up [facility] [address] [place] [address] Mignon Diallo MD MA MAMM SCREEN W/CAD IF PERF AND 3D MAYO 01/07/2025 Results Follow-Up [facility] [address] [place] [address] Mignon Diallo MD BD BONE DENSITY DEXA 01/03/2025 Clinisync Result Encounter [facility] Department Unsolicited Mignon Diallo MD 01/03/2025 Clinisync Result Encounter [facility] External Department Unsolicited Mignon Diallo MD 12/25/2024 Telephone [facility] [address] [place] [address] Mignon Diallo MD Care Coordination 11/28/2024 Results Follow-Up [facility] [address] [place] [address] Mignon Diallo MD CBC and differential, Comprehensive metabolic panel, Lipid panel, TSH REFLEX TO T4F 11/27/2024 11:00 AM EDT Office Visit [facility] [address] [place] [address] Mignon Diallo MD Medicare annual wellness visit, subsequent (Primary Dx); Atherosclerosis of aorta; Hyperlipidemia, mixed ; Chronic fatigue; Encounter for screening mammogram for malignant neoplasm of breast; Post menopausal syndrome; Encounter for follow-up examination after completed treatment for conditions other than malignant neoplasm; BMI 29.0-29.9,adult; Overweight 11/27/2024 Bamboo flowsheet [facility] [address] [place] [id number] Mignon Diallo MD 11/27/2024 Travel from Last 3 Months Immunizations Immunization Administration Dates Next Due Influenza Whole 05/10/2013, 4,02/09/2012,02/08,03/01/2011,03/01/2011,01/30/2010 ,01/30/2010 Influenza, High Dose Seasona l, Preservative Free 01/25/2021,01/16/2019,01/11/2018,02/02,01/26/2016,01/28/2015 Influenza, Seasonal, Quadriv alent, Adjuvanted 01/17/2023 Influenza, Unspecified 03/09/2020,2018,03/07/2018,02/06,01/06/2017,05/08/2015 Influenza, injectable, MDCK, preservative free, quadrivalent 01/19/2022 Influenza, injectable, quadrivalent 02/06/2020,0 01/06/2019 Influenza, injectable, quadr ivalent, preservative free 02/06/2017 Influenza, seasonal, injectable 02/28/2014 Moderna Bivalent Booster Vaccination 02/19/2022 Moderna SARS-CoV-2 Vaccination 08/05/2020,2020 Novel [id number], preservative-free 04/22/2009 Pneumococcal Conjugate PCV 13 02/25/2015, 015 Pneumococcal Polysaccharide PPSV23 02/06/2017,,05/08/2012 Zoster, Recombinant 01/17/2023 Family History Medical History Relation Name Comments Hypertension Daughter Mindy Cordova Cancer Mother Ayana Corona Hypertension Sibling Relation Name Status Comments Daughter Mindy Cordova Alive Father Mother Ayana Corona Sibling Alive Social History Tobacco Use Types Packs/Day Years Used Date Smoking Tobacco: Never Smokeless Tobacco: Never Tobacco Cessation:Counseling Given: Not Answered Alcohol Use Standard Drinks/Week Comments Yes 12 [...] week 10/17/2022 How often do you attend [facility] or gnostic[facility] services? More than 4 times per year [...] Health Questionnaire-2 Score 0 11/27/2024 [facility] - [facility] [...] money to buy more. Never true 10/18/19 Within the past 12 months, t he [...] place to sleep or slept in a retirement (including now)? No 10/17/2022 Comments No Sex and Gender Information Value Date Recorded Sex Assigned at Not on file Legal Sex Female 6:47 PM EDT Gender Identity Not on file Sexual Orientation Not on file Last Filed Vital Signs Vital Sign Reading Time Taken Comments Blood Pressure 136/80 11/27/2024 11:15 AM EDT Pulse 73 11/27/2024 11:15 AM EDT Temperature 37 C (98.6 F) 11/27/2024 11:15 AM EDT Respiratory Rate - - Oxygen Saturation 98% 11/27/2024 11:15 AM EDT Inhaled Oxygen Concentration - - Weight 78.5 kg (173 lb) 11/27/2024 11:15 AM EDT Height 162.6 cm (5' 4 ) 11/27/2024 11:15 AM EDT Body Mass Index 29.7 11/27/2024 11:15 AM EDT Plan of Treatment Upcoming Encounters Date Type Department Care Team (Late st Contact Info) Description 10/30/2025 8:30 AM EDT Office Visit [facility] [address] [place] [phone] Teo Marie DO [address] [place] [address] Health Maintenance Due Date Last Done Comments Influenza Vaccine (#1) 2025 , 01/17/2023, 01/19/2022, Additional history exists Medicare Annual Wellness (AWV) 11/27/2025 0 11/27/2024, 11/20/2023, 08/17/2023, Additional history exists Colonoscopy Discontinued 08/27/2012, 08/24/2012 Pneumococcal Vaccine: 65+ Years Completed 05/10/2023, 02/06/2017, 02/25/2015, Additional history exists Colorectal Cancer Screening Discontinued FIT-DNA Discontinued 01/08/2025, 10/26/2021 Mammogram Discontinued 01/08/2025, 12/07, 12/01/2023, Additional history exists CT Colonography Discontinued FIT Discontinued FOBT Discontinued Sigmoidoscopy Discontinued Goals Goal Patient Goal Type Associated Problems [...] 9:44 AM EDT) No Chas Torres, PT Procedures Procedure Name Priority Date/Time Associated Diagnosis Comments BI MAMMOGRAM SCREENING TOMOSYNTHESIS BILATERAL Routine 01/08/2025 12:08 PM EDT Encounter for screening mammogram for malignant neoplasm of breast LAB COLOGUARD COLON CANCER SCREEN Routine 01/08/2025 8:10 AM EDT Screen for colon cancer BD BONE DENSITY DEXA 01/03/2025 7:54 AM EDT MA MAMM SCREEN W/CAD IF PERF AND 3D MAYO 01/03/2025 7:17 AM EDT TSH REFLEX TO T4F Routine 11/27/2024 12: 08 PM EDT Chronic fatigue LIPID PANEL Routine 11/27/2024 12:08 PM EDT Atherosclerosis of aorta Hyperlipidemia, mixed COMPREHENSIVE METABOLIC PANEL Routine 11/27/2024 12:08 PM EDT Chronic fatigue CBC (INCLUDES DIFF/PLT) Routine 11/27/2024 12:08 PM EDT Chronic fatigue from Last 3 Months Results * Bilateral screening mammogram with tomosynthesis (01/08/2025 12:08 PM EDT) us Mignon Diallo MD IMG BI PROCEDURES Final Resul t * Cologuard?? colon cancer screening (01/08/2025 8:10 AM EDT) NONINV COLON CA DNA+OCC BLD SCRN STL-IMP Negative Negative 01/16/2025 1:03 PM EDT [email or web address] (CLIA #:[id number]) Comment: The Cologuard Plus (TM) test was performed on this specimen. NEGATIVE TEST RESULT. A negative (normal) Cologuard Plus result means the patient has a [id number] chance of having colorectal cancer (CRC) or advanced precancer (polyps or lesions that could become cancer). Negative is the normal value (reference range) for this assay. Guidelines recommend screening again 3 years after a negative Cologuard Plus result. Continued screening increases the chance of finding CRC early or preventing it entirely. A clinical validation study showed the Cologuard Plus test is effective at ruling out CRC. Out of every 10,000 patients testing negative, approximately 2 will be falsely reassured that they do not have CRC, and out of every 100 patients testing negative, approximately 7 patients will be falsely reassured they do not have advanced precancer. TEST DESCRIPTION: The Cologuard Plus test is a multi-target stool DNA (mt-sDNA) test that analyzes DNA and hemoglobin biomarkers in stool. It uses a proprietary algorithm to qualitatively detect CRC and advanced precancer. It is FDA-approved and indicated for use in adults 45 years or older at average risk for CRC. A positive (abnormal) result should be followed by a colonoscopy. Patients with a negative (normal) result should screen again in 3 years. False positive and false negative results may occur. The USPSTF recommends the Cologuard test as a CRC screening option. Their modeling estimates that screening with the test every 3 years from ages 45-85 could prevent up to 73% of CRC and avoid up to 85% of CRC deaths. A 18,911-patient clinical trial found the Cologuard Plus test effectively detects CRC and precancer. The study found the test was 95% sensitive for CRC, 43% sensitive for advanced precancer, and had a 91% specificity (Cologuard Plus Clinician Brochure. [employer]. [place], [place].). Visit www.[employer].com/about/uqljfjcq-jgtzbmegrca-ealuyawzmqd for more test information, references, warnings, and precautions. Stool specimen (specimen) 01/08/2025 8:10 AM EDT 01/10/2025 11:34 AM EDT us Mignon Diallo MD LAB MOLECULAR DIAGNOSTICS ORD ERABLES Final Result .[facility] (CLIA #:[id number]) [address] [place] [address], [email or web address] (CLIA #:[id number]) [address] [place] [address] * BD BONE DENSITY DEXA (01/03/2025 7:54 AM EDT) Anatomical Region Laterality Modality Other 01/03/2025 7:54 AM EDT Narrative 01/03/2025 3:04 PM EDT Exam Date/Time: 01/03/2025 08:05 EDT Reason for Exam: Z09 Report IMPRESSION: BONE DENSITY IS WITHIN NORMAL LIMITS. The NOF/ISD guideline recommend FRAX for postmenopausal patients (not on treatment) if the lowest T-score for Spine(L1-L4), Femur Neck or Femur Total indicates low bone density (T score between -1.0 to -2.5, osteopenia). EXAM: BD Bone Density DEXA DATE: 01/03/2025 7:54 AM CLINICAL HISTORY: Z09. COMPARISON: Most recently 10/11/2019. COMMENT: The lumbar spine and both hips were scanned. The mean bone mineral density from L1 to L4 is 1.424 g/cm2 and this value is 2.0 standard of deviation above the standard reference value for a young adult. Bone mineral density of the left femoral neck is 0.930 g/cm2 and this value is - 0.8 standard of deviation below the standard reference value. Bone mineral density of the right femoral neck is 1.014 g/cm2 and this value is -0.2 standard of deviation below the standard reference value. These values are within the normal range. When compared to the most recent prior exam, there has been a significant 2.7% increase in bone mineral density from L1 to L4 that may be related to increasing degenerative changes, a nonsignificant -1.0% increase in bone mineral density of the left femoral neck, and a nonsignificant -2.3% decrease in bone mineral density of the right femoral neck. RECOMMENDATIONS: 1. All patients should optimize her calcium and vitamin D intake. 2. Consider FDA-approved medical therapies in postmenopausal women and minimal age 50 years and older, based on the following: - hip or vertebral (clinical or morphometric) fracture. - T-score less than or equal to -2.5 at the femoral neck or spine after the appropriate evaluation to exclude secondary causes. - Low bone density (T score between -1.0 and -2.5 at the femoral neck or spine) and a 10 year probability of hip fracture greater than or equal to 3% or a 10-year probability of a major osteoporosis-related fracture greater than or equal to Report 20% based on FRAX calculation. - Clinician judgment and/or patient preferences may indicate treatment for palpable attenuation fracture probability is above or below these levels. - Further guidance on treatment can be found at the National Osteoporosis Foundation's website: bonesource.org 3. Patients with diagnosis of osteoporosis or high risk for fracture. There are irregular bone mineral density tests. For patients eligible for Medicare, routine testing is allowed once every 2 years. Testing frequency can be increased to 1 year for patient's history of rapidly progressing disease, those who are receiving or discontinuing medical therapy to restore bone mass or have additional risk factors. Ordering Provider: Mignon Diallo FINAL REPORT Dictated: 01/03/2025 3:01 pm Cruz Everett MD Signed (Electronic Signature): 01/03/2025 3:01 pm Signed by: Cruz Everett MD Transcribed by: TRINA Technologist: TAMELA Procedure Note Radiology, Radiologist, - 01/03/2025 Exam Date/Time: 01/03/2025 08:05 EDT Reason for Exam: Z09 Report IMPRESSION: BONE DENSITY IS WITHIN NORMAL LIMITS. The NOF/ISD guideline recommend FRAX for postmenopausal patients (not ontreatment) if the lowest T-score for Spine(L1-L4), Femur Neck or Femur Totalindicates low bone density (T score between -1.0 to -2.5, osteopenia). EXAM: BD Bone Density DEXA DATE: 01/03/2025 7:54 AM CLINICAL HISTORY: Z09. COMPARISON: Most recently 10/11/2019. COMMENT: The lumbar spine and both hips were scanned. The mean bone mineral density from L1 to L4 is 1.424 g/cm2 and this valueis 2.0 standard of deviation above the standard reference value for a youngadult. Bone mineral density of the left femoral neck is 0.930 g/cm2 and thisvalue is - 0.8 standard of deviation below the standard reference value. Bone mineral density of the right femoral neck is 1.014 g/cm2 and thisvalue is - 0.2 standard of deviation below the standard reference value. These values are within the normal range. When compared to the most recent prior exam, there has been a significant2.7% increase in bone mineral density from L1 to L4 that may be related toincreasing degenerative changes, a nonsignificant -1.0% increase in bone mineraldensity of the left femoral neck, and a nonsignificant -2.3% decrease in bone mineraldensity of the right femoral neck. RECOMMENDATIONS: 1. All patients should optimize her calcium and vitamin D intake. 2. Consider FDA-approved medical therapies in postmenopausal women andminimal age 50 years and older, based on the following: - hip or vertebral (clinical or morphometric) fracture. - T-score less than or equal to -2.5 at the femoral neck orspine after the appropriate evaluation to exclude secondary causes. - Low bone density (T score between -1.0 and -2.5 at the femoralneck or spine) and a 10 year probability of hip fracture greater than or equal to3% or a 10-year probability of a major osteoporosis-related fracture greater thanor equal to Report 20% based on FRAX calculation. - Clinician judgment and/or patient preferences may indicatetreatment for palpable attenuation fracture probability is above or below theselevels. - Further guidance on treatment can be found at the NationalOsteoporosis Foundation's website: bonesource.org 3. Patients with diagnosis of osteoporosis or high risk for fracture.There are irregular bone mineral density tests. For patients eligible for Medicare,routine testing is allowed once every 2 years. Testing frequency can be increasedto 1 year for patient's history of rapidly progressing disease, those who arereceiving or discontinuing medical therapy to restore bone mass or have additional riskfactors. Ordering Provider: Mignon Diallo FINAL REPORT Dictated: 01/03/2025 3:01 pm Cruz Everett MD Signed (Electronic Signature): 01/03/2025 3:01 pm Signed by: Cruz Everett MD Transcribed by: TRINA Technologist: TAMELA us Mignon Diallo MD [facility] Final Resul t * MA MAMM SCREEN W/CAD IF PERF AND 3D MAYO (01/03/2025 7:17 AM EDT) Anatomical Region Laterality Modality Other 01/03/2025 7:17 AM EDT Narrative 01/07/2025 1:09 PM EDT Exam Date/Time: 01/03/2025 08:42 EDT Reason for Exam: Z12.31 Report IMPRESSION: BIRADS 1 NEGATIVE, NORMAL INTERVAL FOLLOW-UP Follow-up: 12 MONTH RECALL Breast Density: Almost entirely fatty. Vascular calcifications: Absent. EXAM: MA Mamm Screen w/CAD if perf and 3D Mayo DATE: 01/03/2025 7:17 AM CLINICAL HISTORY: Z12.31. COMPARISONS: 12/01/2023, 11/16/2022, and 11/15/2021. TECHNIQUE: Routine full-field digital mammograms and 3D breast tomosynthesis were obtained of both breasts. FINDINGS: No significant changes are identified from the prior studies, given differences in technique and positioning. Dense Breast: No. CAD analysis was performed and used in the interpretation. Board Certified Radiologists. Accredited by the ACR and FDA. MAMMOGRAPHY IS VERY IMPORTANT TO YOUR HEALTH. THE CURRENT [employer] [employer] OF RADIOLOGY AND NATIONAL COMPREHENSIVE CANC[employer] NETWORK GUIDELINES RECOMMENDS ANNUAL MAMMOGRAPHY BEGINNING AT AGE 40. THIS FACILITY UTILIZES A REMINDER SYSTEM TO ENSURE ALL PATIENTS RECEIVE REMINDER NOTIFICATIONS AT THE APPROPRIATE TIME BASED ON THE RECOMMENDATIONS OF THIS EXAM. Report Ordering Provider: Mignon Diallo FINAL REPORT Dictated: 01/07/2025 1:06 pm Cruz Everett MD Signed (Electronic Signature): 01/07/2025 1:06 pm Signed by: Cruz Everett MD Transcribed by: TRINA Technologist: [facility] Assessment: BI-RADS Category 1-Negative Recommendation: Normal interval follow-up Procedure Note Radiology, Radiologist, - 01/07/2025 Exam Date/Time: 01/03/2025 08:42 EDT Reason for Exam: Z12.31 Report IMPRESSION: BIRADS 1 NEGATIVE, NORMAL INTERVAL FOLLOW-UP Follow-up: 12 MONTH RECALL Breast Density: Almost entirely fatty. Vascular calcifications: Absent. EXAM: MA Mamm Screen w/CAD if perf and 3D Mayo DATE: 01/03/2025 7:17 AM CLINICAL HISTORY: Z12.31. COMPARISONS: 12/01/2023, 11/16/2022, and 11/15/2021. TECHNIQUE: Routine full-field digital mammograms and 3D breasttomosynthesis were obtained of both breasts. FINDINGS: No significant changes are identified from the prior studies, givendifferences in technique and positioning. Dense Breast: No. CAD analysis was performed and used in the interpretation. Board Certified Radiologists. Accredited by the ACR and FDA. MAMMOGRAPHY IS VERY IMPORTANT TO YOUR HEALTH. THE CURRENT [employer] [employer] OF RADIOLOGY AND [facility] NETWORK GUIDELINES RECOMMENDS ANNUAL MAMMOGRAPHY BEGINNING AT AGE 40. THIS FACILITY UTILIZES A REMINDER SYSTEM TO ENSURE ALL PATIENTS RECEIVEREMINDER NOTIFICATIONS AT THE APPROPRIATE TIME BASED ON THE RECOMMENDATIONS OF THISEXAM. Report Ordering Provider: Mignon Diallo FINAL REPORT Dictated: 01/07/2025 1:06 pm Cruz Everett MD Signed (Electronic Signature): 01/07/2025 1:06 pm Signed by: Cruz Everett MD Transcribed by: TRINA Technologist: [facility] Assessment: BI-RADS Category 1-Negative Recommendation: Normal interval follow-up Mignon Diallo MD [facility] IMAGING Final Resul t * TSH REFLEX TO T4F (11/27/2024 12:08 PM EDT) TSH W/REFLEX TO FT4 3.530 0.450 - 4.500 uIU/mL [facility] 11/27/2024 12:0 8 PM EDT 11/27/2024 Narrative [facility] - 11/28/2024 8:35 AM EDT Performed at: - [facility] [id number] Senior Applications Analyst: Boston Sutherland PhD, Phone: [phone] us Mignon Diallo MD LAB BLOOD ORDERABLES Final Re sult [facility] * CBC and differential (11/27/2024 12:08 PM EDT) WBC 6.0 3.4 - 10.8 x10E3/uL [facility] RBC 4.33 3.77 - 5.28 x10E6/uL [facility] Hgb 13.6 11.1 - 15.9 g/dL [facility] Hct 41.2 34.0 - 46.6 % [facility] MCV 95 79 - 97 fL [facility] MCH 31.4 26.6 - 33.0 pg [facility] MCHC 33.0 31.5 - 35.7 g/dL [facility] RDW 11.9 11.7 - 15.4 % [facility] Platelets 358 150 - 450 x10E3/uL [facility] Neutrophils 60 Not Estab. % [facility] Lymphs 27 Not Estab. % [facility] Monocytes 9 Not Estab. % [facility] Eos 3 Not Estab. % [facility] Basos 1 Not Estab. % [facility] Neutrophils Abs 3.5 1.4 - 7.0 x10E3/uL [facility] Lymphs Abs 1.6 0.7 - 3.1 x10E3/uL [facility] MonocytesAbs 0.6 0.1 - 0.9 x10E3/uL [facility] Eos Abs 0.2 0.0 - 0.4 x10E3/uL [facility] Baso Abs 0.1 0.0 - 0.2 x10E3/uL [facility] Immature Granulocytes 0 Not Estab. % [facility] Immature Grans Abs 0.0 0.0 - 0.1 x10E3/uL [facility] Blood Venous blood specimen / Unknown 11/27/2024 12:08 PM EDT 11/27/2024 Narrative [facility] - 11/28/2024 8:35 AM EDT Performed at: - [facility] [id number] Senior Applications Analyst: Boston Sutherland PhD, Phone: [phone] us Mignon Diallo MD LAB BLOOD ORDERABLES Final Re sult [facility] * (ABNORMAL) Lipid panel (11/27/2024 12:08 PM EDT) Pathologist [facility] Cholesterol, Total 235(H) 100 - 199 mg/dL [facility] Triglycerides 102 0 - 149 mg/dL [facility] HDL Cholesterol 65 >39 mg/dL [facility] VLDL Cholesterol Kye 18 5 - 40 mg/dL [facility] LDL Chol Calc ([facility]) 152(H) 0 - 99 mg/dL [facility] Blood Venous blood specimen / Unknown 11/27/2024 12:08 PM EDT 11/27/2024 Narrative [facility] - 11/28/2024 8:35 AM EDT Performed at: [address] [place] [id number] Senior Applications Analyst: Boston Sutherland PhD, Phone: [phone] us Mignon Diallo MD LAB BLOOD ORDERABLES Final Re sult [facility] * Comprehensive metabolic panel (11/27/2024 12:08 PM EDT) [facility] Glucose 86 70 - 99 mg/dL [facility] BUN 15 8 - 27 mg/dL [facility] Creat 0.88 0.57 - 1.00 mg/dL [facility] EGFR 68 >59 mL/min/1.7 3 [facility] BUN/Creat Ratio 17 12 - 28 [facility] Sodium 141 134 - 144 mmol/L [facility] Potassium 4.9 3.5 - 5.2 mmol/L [facility] Chloride 101 96 - 106 mmol/L [facility] Carbon Dioxide 23 20 - 29 mmol/L [facility] Calcium 9.3 8.7 - 10.3 mg/dL [facility] Protein Total 6.7 6.0 - 8.5 g/dL [facility] Albumin 4.1 3.8 - 4.8 g/dL [facility] Globulin Total 2.6 1.5 - 4.5 g/dL [facility] Bili Total 0.3 0.0 - 1.2 mg/dL [facility] Alk Phosphatase 90 44 - 121 IU/L [facility] AST 19 0 - 40 IU/L [facility] ALT 13 0 - 32 IU/L [facility] Blood Venous blood specimen / Unknown 11/27/2024 12:08 PM EDT 11/27/2024 Narrative [facility] - 11/28/2024 8:35 AM EDT Performed at: 01 - [facility] [address], [place], [place] [id number] Senior Applications Analyst: Boston Sutherland PhD, Phone: [phone] us Mignon Diallo MD LAB BLOOD ORDERABLES Final Re sult [facility] from Last 3 Months Insurance MEDICARE [facility] MEDICARE SUPPLEMENT Care Teams Metal Bonding Crib Attendant Relationship Specialty Start Date End Date Mignon Diallo MD [address] [place] [address] PCP - General Family Medicine 11/15/22
--- OUTSIDE RECORDS SUMMARY | 2025-01-30 09:06 | XMS_ITS | Patient Health Record ---
Author Organization [facility] [place] Address [address] [place] [address] Care Team Providers Care Loading Inspector Name Role Phone Mignon Diallo MD Primary Care Provider Kaitlina Manav Marin Unavailable [phone] Allergies Allergen (clinical drug ingredient) Drug/Non Drug Allergy documented on EMR Reaction Allergy Type Onset Date Status poison cordell (uncoded) Unknown Allergy Active red dye (uncoded) swelling Allergy Ac tive Yellow Jacket Venom SOB Drug Allergy Active pravastatin Pravastatin hives Drug Allergy Act ximena nabumetone Relafen hives Drug Allergy Active Results Component Value Reference Range Notes XR foot RT min 3V Reviewed date:05/06/2024 02:41:59 PM Interpretation: Performing Lab: Notes/Report: Source Facility: [place] [address] XRay Report Signed Patient: Jackeline Ackerman MR#: [id number] : 1950 Acct:[id number] Age/Sex: 73 / F ADM Date: 01/30/24 Loc: EC Attending Dr: Manav Corral D.P.M. Ordering Physician: Manva Corral D.P.M. Date of Service: 01/30/24 Procedure(s): XR foot RT min 3V Accession Number(s): [id number] cc: Manav Corral D.P.M.; CARMEN DIALLO [place] [address] Patient Name: JACKELINE ACKERMAN MRN: [id number] date: 1950 Sex: F Assigned Patient Location: Current Patient Location: Accession/Order Number: [id number] Exam Date: 01/30/2024 10:55 Report Date: 02/01/2024 05:34 At the request of: MANAV CORRAL Procedure: XR foot RT min 3V PROCEDURE: XR foot RT min 3V HISTORY: RIGHT FOOT PAIN COMPARISON: XR foot right 10/11/2022 FINDINGS: BONES:Prior spacer placement and mechanical fusion of the first metatarsophalangeal joint; no appreciable hardware fracture or loosening. Prominent degenerative enthesopathic spurring of the calcaneus. SOFT TISSUES:No visible soft tissue swelling. EFFUSION:None visible. OTHER: Negative. XR/XR foot RT min 3V IMPRESSION: 1. Stable surgical changes without evidence of hardware failure or change in alignment. 2. Stable degenerative changes. Electronically authenticated by: DOMENIC NIÑO Date: 02/01/2024 05:34 Dictated By: Domenic Niño M.D. 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 complication (359561518) Other mechanical complication of other internal orthopedic devices, implants and grafts, sequela (T84.498S) Active confirmed Plan Of Treatment No Information Insurance Providers Payer Name Payer Address Payer Phone Subscriber Number Group Number Insured Name Patient Relationship to Insured Coverage Start Date Coverage End Date [place] [address] [place] [address] [phone] [id number] Jackeline Ackerman Self - patient is the insured [employer] [address] [address] [place] [address] [id number] Jackeline Ackerman Self - patient is the insured Medical (General) History Medical History History ICD Code Right foot pain M79.671 Hallux rigidus of right foot M20.21 Surgical History Surgery Date(Month/Year) right foot 12/26 right shoulder 11/2019 left foot 08/2018 left wrist 2017 T&A hysterectomy 1st mpj fusion with custom 3 d printed implant, removal of hardware and right great toe, harvest distal tibia bone graft 01/24/2022 Hospitalization History Reason Date(Month/Year) see above
--- OUTSIDE RECORDS SUMMARY | 2025-01-30 09:06 | XMS_ITS | Encounter Summary ---
Author Organization [facility] Address [address] [place] [address] Care Team Providers Care Conference Services Coordinator Name Role Phone Felicia Doty MD Primary Care Provider + Mignon Diallo MD Primary Care Provider [phone] Encounter Details Date Type Department Care Team (Late st Contact Info) Description 10/18/2022 Abstract [facility] [place] [facility] [address] [place] [id number] Mignon Diallo MD [address] [place] [address] Social History Tobacco Use Types Packs/Day Years [...] often do you attend chur ch or baptism services? More than 4 times per year 10/17/2022 Do you belong to any clubs o r organizations such as jehovah's witness groups, unions, fraternal or athletic groups, or [...] and heating? Not hard at all 10/17/2022 [facility] - Occupational Stress Questionnaire Answer Date [...] place to sleep or slept in a correction (including now)? No 10/17/2022 Comments Unknown Sex [...] 10/30/2025 8:30 AM EDT Office Visit [facility] [address] [place] [address] Teo Marie DO [address] [place] [address] documented as of this encounter Visit Diagnoses Not on filedocumented in this encounter Care Teams Conference Services Coordinator Relationship Specialty Start Date End Date Felicia Doty MD [address] [place] [address] PCP - General Physician Counselling Psychologist 09/29/22 11/14/22 Mignon Diallo MD [address] [place] [address] PCP - General Family Medicine 11/15/22 documented as of this encounter
--- OUTSIDE RECORDS SUMMARY | 2025-01-30 09:06 | XMS_ITS | Encounter Summary ---
Author Organization [facility] Address [address] [place] [address] Care Team Providers Care Overweaver Name Role Phone Mignon Diallo MD Primary Care Provider [phone] Encounter Details Date Type Department Care Team (Late st Contact Info) Description 01/19/2023 Abstract [facility] [address] [place] [phone] Chas Torres, PT [address] [place] [address] Social History Tobacco Use Types Packs/Day Years [...] How often do you attend chur or voodoo services? More than 4 times per year 10/17/2022 Do you belong to any clubs o r organizations such as amish groups, unions, fraternal or athletic groups, or [...] Recorded Patient Health Questionnaire-2 Score 0 11/15/2022 [facility] - Occupational Stress Questionnaire Answer Date [...] place to sleep or slept in a long-term (including now)? No 10/17/2022 Comments Unknown Sex [...] suspected to have Coronavirus/COVID-19? No / Unsure 01/12/2023 8:46 AM EDT documented as of this encounter Plan of Treatment Upcoming Encounters Date Type Department Care Team (Late st Contact Info) Description 10/30/2025 8:30 AM EDT Office Visit [facility] [address] [facility] [place] [address] Teo Marie DO [address] [place] [address] documented as of this encounter Goals Goal Patient Goal Type Associated Problems Recent Progress Patient-Stated? Author The patient will achieve at least 4/5 R UE muscle strength in order to improve ability to perform ADLs and return to PLOF General Improving( 9:44 AM EDT) No Chas Torres, PT Patient will achieve at least 140 degrees of right shoulder flexion and abduction AROM to improve functional mobility General Improving( 9:44 AM EDT) No Chas Torres, PT Patient will achieve a Quick DASH score of 24/55 or better in order to demonstrate overall functional improvement General Improving( 9:44 AM EDT) No Chas Torres PT The patient will have decreased average pain to 2/10 or less during functional activities General Improving( 9:44 AM EDT) No Chas Torres PT documented as of this encounter Visit Diagnoses Not on filedocumented in this encounter Care Teams Overweaver Relationship Specialty Start Date End Date Mignon Diallo MD [address] [place] [address] PCP - General Family Medicine 11/15/22 documented as of this encounter
--- OUTSIDE RECORDS SUMMARY | 2025-01-30 09:06 | XMS_ITS | Encounter Summary ---
Author Organization [facility] Address [address] [place] [address] Care Team Providers Care Rod Mill Operator Name Role Phone Mignon Diallo MD Primary Care Provider [phone] Encounter Details Date Type Department Care Team (Late st Contact Info) Description 11/21/2022 Abstract [facility] [address] [facility] [address] [place] [phone] Teo Marie, DO [address] [place] [address] Social History Tobacco Use Types Packs/Day Years [...] often do you attend chur ch or islam services? More than 4 times per year 10/17/2022 Do you belong to any clubs o r organizations such as muslim groups, unions, fraternal or athletic groups, or [...] Recorded Patient Health Questionnaire-2 Score 0 11/15/2022 [facility] - Occupational Stress Questionnaire Answer Date [...] place to sleep or slept in a penitentiary (including now)? No 10/17/2022 Comments Unknown Sex and Gender Information Value Date Recorded Sex Assigned at Not on file Legal Sex Female 6:47 PM EDT Gender Identity Not on file Sexual Orientation Not on file documented as of this encounter Plan of Treatment Upcoming Encounters Date Type Department Care Team (Late st Contact Info) Description 10/30/2025 8:30 AM EDT Office Visit [facility] [address] [place] [phone] Teo Marie, DO [address] [place] [address] documented as of this encounter Visit Diagnoses Not on filedocumented in this encounter Care Teams Rod Mill Operator Relationship Specialty Start Date End Date Mignon Diallo MD [address] [place] [address] PCP - General Family Medicine 11/15/22 documented as of this encounter
--- OUTSIDE RECORDS SUMMARY | 2025-01-30 09:07 | XMS_ITS | Encounter Summary ---
Author Organization [facility] Address [address] [place] [address] Care Team Providers Care Edge Bonder Name Role Phone Mignon Diallo MD Primary Care Provider [phone] Encounter Details Date Type Department Care Team (Late st Contact Info) Description 12/06/2023 Orders Only [facility] [address] [place] [address] Rosemarie Herrera MA Screening mammogram for high-risk patient Social History Tobacco Use Types Packs/Day Years [...] How often do you attend chur or yarsanism services? More than 4 times per year 10/17/2022 Do you belong to any clubs o r organizations such as mandaeism groups, unions, fraternal or athletic groups, or [...] Recorded Patient Health Questionnaire-2 Score 0 11/15/2022 [facility] - Occupational [...] place to sleep or slept in a chcf (including now)? No 10/17/2022 Comments Unknown Sex and Gender Information Value Date Recorded Sex Assigned at Not on file Legal Sex Female 6:47 PM EDT Gender Identity Not on file Sexual Orientation Not on file documented as of this encounter Plan of Treatment Upcoming Encounters Date Type Department Care Team (Late st Contact Info) Description 10/30/2025 8:30 AM EDT Office Visit [facility] [address] [place] [phone] Teo Marie DO [address] [place] [address] documented as of this encounter Goals Goal [...] Comments BI MAMMOGRAM SCREENING TOMOSYNTHESIS BILATERAL Routine 12/01/2023 4:44 PM EDT Screening mammogram for high-risk patient documented in this encounter Results * Bilateral screening mammogram with tomosynthesis (12/01/2023 4:44 PM EDT) us Mignon Diallo MD IMG BI PROCEDURES Final Resul t documented in this encounter Visit Diagnoses Diagnosis Screening mammogram for high-risk patient documented in this encounter Additional Health Concerns Assessment Noted Time PHQ-9 Depression Total Score: 0 11/20/19 24 8:00 AM EDT documented as of this encounter Care Teams Edge Bonder Relationship Specialty Start Date End Date Mignon Diallo MD [address] [place] [address] PCP - General Family Medicine 11/15/22 documented as of this encounter
--- NOTE | 2025-01-30 09:08 | XR_ITS ---
[address] [address] Patient Name: TALIA ACKERMAN MRN: [id number] date: 1950 Sex: F Assigned Patient Location: [facility] Current Patient Location: [facility] Accession/Order Number: [id number] Exam Date: 01/30/2025 09:40 Report Date: 01/30/2025 10:12 At the request of: MANAV VASQUEZ DPJames Procedure: XR foot RT min 3V RIGHT FOOT - 3 views CLINICAL HISTORY: Pain COMPARISON: Right foot 01/30/2024 FINDINGS: Bones are grossly demineralized. No focal soft tissue abnormality. Hardware fixation involving the first MTP joint grossly unchanged in configuration without hardware complication. No acute bony process. Plantar spurring. Mild degenerative change. No bony erosions. XR/XR foot RT min 3V IMPRESSION: NO HARDWARE COMPLICATION OR ACUTE BONY PROCESS. Impression dictated by: Eusebio Zapata Jr., D.O. 01/30/2025 10:12 AM Dictation Location: [place] [address] Electronically authenticated by: [id number] Y Date: 01/30/2025 10:12
--- OUTSIDE RECORDS SUMMARY | 2025-01-30 09:10 | XMS_ITS | CCD ---
Author Organization [facility] Inform ion [facility] Care Team Providers Care Print Producer Name Role Phone TRENT YUN Unavailable Unavailable Felicia SOLIS Primary Care Physician Johnathon Waller Primary Care Physician Unavail able MANAV VASQUEZ Attending Unavailable HIGHLANDER, MANAV Oconnell Admitting Unavailable HIGHLANDER, MANAV Oconnell Consulting Unavailable ZIEBER, DR DOMENIC Hamlin Consulting Unavailable HIGHLANDERMANAV Admitting Unavailable HIGHLANDER, MANAV Oconnell Attending Unavailable HIGHLMANAV REGAN Consulting Unavailable PATRICIA MCCABE Consulting Unavailable IRMA, DR GONZALES Consulting Unavailab le HIGHLANDER, MANAV Oconnell Attending Unavailable ZIEBER, DR DOMENIC Hamlin Consulting Unavailable HIGHLANDERMANAV Admitting Unavailable HIGHLANDER, MANAV Oconnell Consulting Unavailable LYNDSAY ., KYLE MCDONNELL Consulting Unavailable MORGOSHASMUKH Consulting Unavailable GEMBUS, YONAS Consulting Unavailable IRMA, DR GONZALES Consulting Unavailab le HIGHLANDER, MANAV Oconnell Admitting Unavailable HIGHLANDER, MANAV Oconnell Attending Unavailable ZIEBER, DR DOMENIC Hamlin Consulting Unavailable HIGHLANDERMANAV Consulting Unavailable IRMA, DR GONZALES Consulting Unavailab le HIGHLANDERMANAV Admitting Unavailable HIGHLANDER, MANAV Oconnell Attending Unavailable WEST, DR TRENT Rosenberg Consulting Unavailable HIGHLANDERMANAV Consulting Unavailable HIGHLANDERMANAV Attending Unavailable WEST, DR TRENT Rosenberg Consulting Unavailable HIGHLANDERMANAV Admitting Unavailable HIGHLANDERMANAV Consulting Unavailable ERENDIRA ARANDA Attending Unavailable ZIEBJUAN, DR DOMENIC Hamlin Consulting Unavailable ERENDIRA ARANDA Admitting Unavailable ERENDIRA ARANDA Consulting Unavailable Mignon Diallo Primary Care Physician [phone] Mignon Diallo MD Primary Care Provider Mignon Diallo MD Primary Care Provider ERI PELAYO Referring Unavailable PELAYOERI Attending Unavailable YOEL, MIGNON Ramirez Attending Unavailable PELAYOERI Referring Unavailable PELAYOERI Attending Unavailable Yoel, Mignon Ramirez Admitting Unavailable Yoel, Mignon Ramirez Attending Unavailable YoelMignon Referring Unavailable Allergies Allergy Classification Reported Allergen(s) Allergy Type Date of Onset Reaction(s) Facility (9 sources) Bee/Wasp/Ant venom; Translations: [Bee Stings] Propensity to adverse reactions to substance 6 Shortness of breath [facility] (10 sources) Contrast media; Translations: [red dye] Drug allergy 3 Lip swelling (finding) [facility] (17 sources) nabumetone; Translations: [nabumetone] Drug Allergy 6 Unknown, [facility] (20 sources) Pravastatin; Translations: [pravastatin] Drug Allergy 8 Weal (disorder), [facility] (1 source) bee venom Drug allergy (disorder) [facility] (2 sources) nabumetone; Translations: [Relafen] Drug Allergy 6 [facility] (1 source) Pravastatin Drug Allergy [facility] (14 sources) Honey bee venom Propensity to adverse reactions 6 Unknown [facility] (14 sources) Honey bee venom Drug Allergy 3 [facility] (14 sources) nabumetone Drug Allergy 6 Hives, Unknown [facility] (14 sources) Red Dye #40 (Allura Red) Allergy to substance 3 Unknown [facility] (14 sources) [place] Venom Drug Allergy 4 Shortness of breath [facility] (11 sources) POISON PATTI EXTRACT Drug Allergy 5 [facility] (1 source) Poison Patti Extract Allergy to substance 5 [facility] (1 source) eletriptan; Translations: [Relpax] Drug Allergy [facility] Repository Medications Current Medications Medication Drug Class(es) Dates Sig (Normalized) Sig (Original) acetaminophen 325 mg / oxyCODONE hydrochloride 5 mg oral tablet (2 sources) Opioid Agonist Start: 11-18-2022 take 1-2 tablets by mouth every four hours as needed for pain Percocet 5 mg-325 mg oral tablet See Instructions, 50 tab(s), Refill(s) 0, Take one to two every 4 hours as needed for pain., [facility], 161.5, cm, 10/31/22 13:04:00 EDT, Height/Length Dosing, 84.7, kg, 10/31/22 13:04:00 EDT, Weight Dosing Start Date: 11/18/22 Status: Ordered aspirin 325 mg oral tablet (3 sources) Platelet Aggregation Inhibitor, Nonsteroidal Anti-inflammatory Drug Start: 02-15-2022 take 1 mg by mouth every four hours aspirin 325 mg Tab mg tab(s), Oral, q4hr, Refills(s) 0 Start Date: 02/15/22 Status: Ordered docusate sodium 100 mg oral capsule (2 sources) Start: 11-18-2022 take 1 capsule by mouth twice daily Colace 100 mg Cap 100 mg = 1 cap(s), Oral, BID, # 20 cap(s), Refills(s) 0, Pharmacy: [id number], 161.5, cm, 10/31/22 13:04:00 EDT, Height/Length Dosing, 84.7, kg, 10/31/22 13:04:00 EDT, Weight Dosing Start Date: 11/18/22 Status: Ordered [id number] 0.3 ml EPINEPHrine 1 mg/ml auto-injector (12 sources) alpha-Adrenergic Agonist, beta-Adrenergic Agonist, Catecholamine EPINEPHrine (Epipen) 0.3 MG/0.3ML injection syringe INJECT 1 AUTO-INJECTOR EVERY DAY NEEDED Active meloxicam 7.5 mg oral tablet (4 sources) Nonsteroidal Anti-inflammatory Drug Start: 02-15-2022 meloxicam 7.5 mg Tab 7.5 mg = 1 tab(s), Oral, Supper, # 30 tab(s), Refills(s) 5, Pharmacy: [facility]/pharmacy #[id number], 162.5, cm, 02/15/22 9:59:00 EDT, Height/Length Dosing, 81.5, kg, 10/15/21 10:41:00 EDT, Weight Dosing Start Date: 04/12/22 Status: Ordered Nature's Bounty Red Krill Oil (5 sources) Start: 10-15-2021 take 1000 mg by mouth once daily Nature's Bounty Red Krill Oil 1,000 mg, Oral, Daily, Refill(s) 0 Start Date: 10/15/21 Status: Ordered niacin 500 mg oral capsule (2 sources) Nicotinic Acid Start: 09-25-2019 take 1 capsule by mouth once daily niacin 500 mg oral capsule 500 mg = 1 cap(s), Oral, Daily, recommended per PCP in [place], Refills(s) 0, High cholesterol Start Date: 09/25/19 Status: Ordered sulfamethoxazole 800 mg / trimethoprim 160 mg oral tablet (1 source) Dihydrofolate Reductase Inhibitor Antibacterial, Sulfonamide Antimicrobial Start: 11-18-2022 End: 11-23-2022 Bactrim D.S. 800 mg-160 mg Tab 1 tab(s), Oral, BID for 5 day(s), 10 tab(s), Refill(s) 0, Start the day after shoulder surgery, [facility], 161.5, cm, 10/31/22 13:04:00 EDT, Height/Length Dosing, 84.7, kg, 10/31/22 13:04:00 EDT, Weight Dosing Start Date: 11/18/22 Stop Date: 11/23/22 Status: Ordered Vitamin D (3 sources) Start: 02-15-2022 Vitamin D International_Un it, Oral, qWeek, Refills(s) 0 Start Date: 02/15/22 Status: Ordered Problems Active Problems Problem Classification Problem Date Documented Date Episodic/Chronic Acquired foot deformities (19 sources) Hallux rigidus, right foot; Translations: [Acquired hallux rigidus] Onset: 01-20-2022 Chronic Chronic kidney disease (14 sources) Chronic kidney disease stage 2; Translations: [Chronic kidney disease, stage 2 (mild)] Onset: 07-05-2016 Resolved: 11-20-2023 11-20-2023 Chronic Chronic obstructive pulmonary disease and bronchiectasis (1 source) Unspecified chronic bronchitis; Translations: [UNSPECIFIED CHRONIC BRONCHITIS] Onset: 02-07-2022 Chronic Deficiency and other anemia (1 source) Anemia, unspecified; Translations: [ANEMIA UNSPECIFIED] Onset: 02-07-2022 Episodic Disorders of lipid metabolism (20 sources) Mixed hyperlipidemia; Translations: [Mixed hyperlipidemia] Onset: 02-23-2017 Resolved: 10-18-2022 Chronic Essential hypertension (1 source) Essential (primary) hypertension; Translations: [ESSENTIAL PRIMARY HYPERTENSION] Onset: 02-07-2022 Chronic Genitourinary symptoms and ill-defined conditions (8 sources) History of acute renal failure 12-27-2019 Episodic Malaise and fatigue (2 sources) Fatigue; Translations: [Chronic fatigue, unspecified] 11-27-2024 Chronic Menopausal disorders (2 sources) Disorder associated with menstruation AND/OR menopause; Translations: [Menopausal and female climacteric states] 11-27-2024 Chronic Osteoarthritis (20 sources) Degenerative joint disease involving multiple joints; Translations: [Osteoarthrosis involving multiple sites but not designated as generalized] Onset: 08-07-2019 09-25-2019 Chronic Other acquired deformities (14 sources) Contracture of joint of right ankle; Translations: [Contracture, right ankle] Onset: 10-01-2022 10-01-2022 Chronic Other bone disease and musculoskeletal deformities (1 source) Major osseous defect, unspecified site; Translations: [MAJOR OSSEOUS DEFECT UNS SITE] Onset: 02-07-2022 Episodic Other connective tissue disease (18 sources) History of reverse prosthetic total arthroplasty of right shoulder; Translations: [Presence of right artificial shoulder joint] Onset: 10-17-2022 01-22-2024 Chronic Other connective tissue disease (8 sources) Full thickness rotator cuff tear 10-14-2020 Episodic Other connective tissue disease (1 source) Disorder of synovium; Translations: [Other specified disorders of synovium and tendon, unspecified shoulder] Onset: 02-15-2022 Episodic Other connective tissue disease (5 sources) Pain in right foot; Translations: [PAIN IN RIGHT FOOT] Onset: 02-07-2022 Episodic Other injuries and conditions due to external causes (1 source) Other specified injuries of left wrist, hand and finger(s), initial encounter; Translations: [Other specified injuries of left wrist, hand and finger(s), initial encounter] Onset: 11-22-2017 Episodic Other non-traumatic joint disorders (14 sources) Rotator cuff arthropathy of right shoulder; Translations: [Other specific arthropathies, not elsewhere classified, right shoulder] Onset: 10-19-2022 10-19-2022 Chronic Other nutritional; endocrine; and metabolic disorders (1 source) Obese class I; Translations: [Body mass index (BMI) 31.0-31.9, adult] Onset: 10-15-2021 Chronic Other nutritional; endocrine; and metabolic disorders (8 sources) Body mass index 30+ - obesity 09-25-2019 Chronic Other nutritional; endocrine; and metabolic disorders (2 sources) Overweight in adulthood with body mass index of 25 or more but less than 30; Translations: [Body mass index (BMI) 29.0-29.9, adult] 11-27-2024 Episodic Other nutritional; endocrine; and metabolic disorders (2 sources) Overweight; Translations: [Overweight] 11-27-2024 Episodic Other upper respiratory disease (14 sources) Perennial allergic rhinitis; Translations: [Other allergic rhinitis] Onset: 10-17-2022 10-17-2022 Chronic Peripheral and visceral atherosclerosis (16 sources) Atherosclerosis of aorta; Translations: [Atherosclerosis of aorta] Onset: 08-07-2019 10-17-2022 Chronic Residual codes; unclassified (1 source) Presence of functional implant, unspecified; Translations: [PRESENCE FUNCTIONAL IMPLANT UNS] Onset: 02-07-2022 Chronic Residual codes; unclassified (8 sources) Preoperative state 10-14-2021 Episodic Residual codes; unclassified (1 source) Past history of procedure; Translations: [Other specified postprocedural states] Onset: 02-15-2022 Episodic Residual codes; unclassified (1 source) Acquired absence of both cervix and uterus; Translations: [ACQUIRED ABSENCE BOTH CERVIX AND UTERUS] Onset: 02-07-2022 Episodic Thyroid disorders (8 sources) Hypothyroidism 09-24-2019 Chronic Unclassified (8 sources) Active advance directive 10-14-2020 Unclassified (20 sources) Patient encounter status 10-14-2020 Unclassified (8 sources) Statin not tolerated (context-dependent category) 10-14-2020 Unclassified (6 sources) Glomerular filtration rate decreased 02-15-2022 Unclassified (1 source) CONTACT W/AND (SUSP) EXPOS COVID-19; Translations: [CONTACT W/AND (SUSP) EXPOS COVID-19] Onset: 01-25-2022 Past or Other Problems Problem Classification Problem Date Documented Da te Episodic/Chronic Deficiency and other anemia (20 sources) Anemia; Translations: [Anemia, unspecified] Onset: 02-15-2022 Resolved: 10-18-2022 Episodic Disorders of teeth and jaw (20 sources) Mucogingival deformity on edentulous ridge; Translations: [Other specified disorders of gingiva and edentulous alveolar ridge] Onset: 02-15-2022 Resolved: 10-18-2022 Episodic Mood disorders (14 sources) Mood disorders Onset: 11-20-2023 11-20-2023 Other connective tissue disease (20 sources) Tendinosis; Translations: [Other specified disorders of synovium and tendon, unspecified shoulder] Onset: 10-17-2022 02-15-2022 Episodic Other connective tissue disease (4 sources) Arthrodesis status; Translations: [ARTHRODESIS STATUS] Onset: 11-27-2021 Episodic Other connective tissue disease (14 sources) Calcaneal spur; Translations: [Calcaneal spur, unspecified foot] Onset: 08-05-2018 10-17-2022 Episodic Other non-traumatic joint disorders (14 sources) Pain in right shoulder; Translations: [Pain in joint, shoulder region] Onset: 04-14-2021 Resolved: 11-20-2023 11-20-2023 Episodic Other nutritional; endocrine; and metabolic disorders (15 sources) Obesity; Translations: [Other obesity due to excess calories] Onset: 10-15-2021 Resolved: 11-20-2023 Chronic Other nutritional; endocrine; and metabolic disorders (20 sources) Simple obesity ; Translations: [Obesity, unspecified] Onset: 10-17-2022 Resolved: 10-18-2022 09-25-2019 Chronic Other screening for suspected conditions (not mental disorders or infectious disease) (20 sources) Screening for malignant neoplasm of colon done; Translations: [Encounter for screening for malignant neoplasm of colon] Onset: 10-15-2021 Resolved: 10-18-2022 Episodic Residual codes; unclassified (20 sources) Reduced libido; Translations: [Decreased libido] Onset: 10-17-2022 Resolved: 11-27-2024 10-18-2020 Episodic Residual codes; unclassified (17 sources) Patient encounter status; Translations: [Other specified health status] Onset: 02-15-2022 Resolved: 11-15-2022 Episodic Residual codes; unclassified (14 sources) Active advance directive; Translations: [Other specified health status] Onset: 10-17-2022 Resolved: 11-20-2023 11-20-2023 Episodic Residual codes; unclassified (14 sources) Other specified health status; Translations: [Other drug allergy] Onset: 10-17-2022 Resolved: 11-20-2023 11-20-2023 Episodic Results Test Name Value Interpretation Reference Range Facility [facility] MAMM SCREEN W/CAD IF PERF AND 3D BILon 01-07-2025 Exam Date/Time: 01/03/2025 08:42 EDT Reason for [...] VERY IMPORTANT TO YOUR HEALTH. THE CURRENT [employer] [...] Cruz Everett MD Transcribed by: TRINA Technologist: [facility] Assessment: BI-RADS Category 1-Negative Recommendation: Normal interval follow-up [facility] Radiology, Radiologjesus manuel dang MD - 01/07/2025 Exam Date/Time: 01/03/2025 08:42 EDT [...] VERY IMPORTANT TO YOUR HEALTH. THE CURRENT [employer] GUIDELINES RECOMMENDS ANNUAL MAMMOGRAPHY BEGINNING AT AGE 38. THIS FACILITY UTILIZES A REMINDER SYSTEM TO ENSURE ALL PATIENTS RECEIVE REMINDER NOTIFICATIONS AT THE APPROPRIATE TIME BASED ON THE RECOMMENDATIONS OF THIS EXAM. Report Ordering Provider: Mignon Diallo FINAL REPORT Dictated: 01/07/2025 1:06 pm rCuz Everett MD Signed (Electronic Signature): 01/07/2025 1:06 pm Signed by: Cruz Everett MD Transcribed by: TRINA Technologist: [facility] Assessment: BI-RADS Category 1-Negative Recommendation: Normal interval follow-up [facility] MA MAMM SCREEN W/CAD IF PERF AND 3D BILOrdered By: Radiologist Radiology on 01-07-2025 [facility] Radico Work Phone: [place] Mamm Screen w/CAD if perf and 3D Bilon 01-07-2025 [facility] Mamm Screen w/CAD if perf and 3D [facility] Exam Date/Time: 01/03/2025 08:42 EDT Reason for [...] VERY IMPORTANT TO YOUR HEALTH. THE CUR[employer] [...] Cruz Everett MD Transcribed by: TRINA Technologist: [facility] Assessment: BI-RADS Category 1-Negative Recommendation: Normal interval follow-up Normal [facility] BD BONE DENSITY DEXAon 01-03 Exam Date/Time: 01/03/2025 08:05 EDT Reason for [...] is 0.930 g/cm2 and this value is -0.8 standard of deviation below the standard reference [...] Everett MD Transcribed by: TRINA Technologist: [facility] Radiology, Radiologi MD alton - 01/03/2025 Exam Date/Time: 01/03/2025 08:05 EDT [...] is 0.930 g/cm2 and this value is -0.8 standard of deviation below the standard reference [...] Everett MD Transcribed by: TRINA Technologist: TAMELA [facility] Radiology Study observation (narrative) [facility] BD BONE DENSITY DEXAOrdered By: Radiologist Radiology on 01-03-2025 [facility] Work Phone: BD Bone Density DEXAon 01-03 BD Bone Density DEXA Exam Date/Time: 01/03/2025 08:05 EDT Reason for [...] is 0.930 g/cm2 and this value is -0.8 standard of deviation below the standard reference [...] Everett MD Transcribed by: TRINA Technologist: TAMELA [facility]iz[facility] MA MAMM SCREEN W/CAD IF PERF AND 3D BILon 01-03-2025 Radiology Study observation (narrative) [facility]ico XR Shoulder - right 2 Viewso n 10-31-2024 Imaging Result: Two view x-rays AP and Y views saved to the permanent record in the [place] office show stable position and alignment of the reverse arthroplasty. There is no subluxation or dislocation seen. [facility] Radico [facility] XR Shoulder - right 2 Viewso n 10-29-2024 Radiology Study observation (narrative) [facility] XR Shoulder - right 2 Viewso n 01-25-2024 Imaging Result: X-rays and imaging permanently saved to the patient's record were reviewed two views AP and Y saved to the permanent record in the [place] office show stable position and alignment of the right reverse prosthesis. There is no discernable sign of loosening or infection. [facility] XR Shoulder - right 2 Viewso n 01-23-2024 Radiology Study observation (narrative) [facility] BLOOD BANKOrdered By: Aileen Quintero on 11-21-2022 ABO/Rh Interp Positive Invalid Interpretation Code [facility] BB Subsection ABSC Gel Interp Negative (11/21/22 9:53 AM) Normal [facility] BB Subsection BLOOD BANKOrdered By: Marivel Kirk on 10-31-2022 ABO/Rh Retype Interp Positive Invalid Interpretation Code [facility] BB Subsection CHEMISTRYOrdered By: SYSTEM SYSTEM on 10-31-2022 Anion gap [Moles/Vol] 9 mmol/L Normal 6 - 16 mEq/L [facility] Chloride [Moles/Vol] 105 mmol/L Normal 101 - 111 mmol/L [facility] CO2 [Moles/Vol] 31 mmol/L Normal 21 - 31 mmol/L [facility] Creatinine [Mass/Vol] 0.9 mg/dL Normal 0.5 - 1.3 mg/dL [facility] Remisol GFR/1.73 sq M.predicted among non-blacks MDRD (S/P/Bld) [Vol rate/Area] 67 mL/min/1.73 m2 Normal >=59mL/min/ 1.73 m2 [facility] Chem S Glucose [Mass/Vol] 120 mg/dL Normal 55 - 199 mg/dL [facility] Potassium [Moles/Vol] 4.2 mmol/L Normal 3.5 - 5.3 mmol/L [facility] Sodium [Moles/Vol] 141 mmol/L Normal 135 - 145 mmol/L [facility] Urea nitrogen [Mass/Vol] 20 mg/dL Normal 5 - 21 mg/dL [facility] HEMATOLOGYOrdered By: Ashley fisher on 10-31-2022 Erythrocyte distribution width (RBC) [Ratio] 12.7 % Normal 10.9 - 14.2 % [facility] Hematocrit (Bld) [Volume fraction] 38.5 % Normal 34.0 - 46.0 % [facility] Hemoglobin (Bld) [Mass/Vol] 12.7 g/dL Normal 12.0 - 16.0 gm/dL [facility] MCH (RBC) [Entitic mass] 30.8 pg Normal 27.0 - 34.0 pg [facility] MCHC (RBC) [Mass/Vol] 33.0 g/dL Normal 31.4 - 36.0 gm/dL [facility] MCV (RBC) [Entitic vol] 93.3 fL Normal 80.0 - 100.0 fL [facility] Platelet mean volume (Bld) [Entitic vol] 7.2 fL Normal 6.4 - 10.8 fL [facility] Platelets (Bld) [#/Vol] 383.0 E9/L Normal 150.0 - 500.0 E9/L [facility] RBC (Bld) [#/Vol] 4.1 E12/L Low 4.3 - 5.9 E12/L [facility] WBC corrected for nucl RBC Auto (Bld) [#/Vol] 7.9 E9/L Normal 4.0 - 11.0 E9/L [facility] URINALYSISOrdered By: Nelly Rivera on 10-31-2022 Bilirubin Ql (U) Negative (10/31/22 11:23 AM) Normal Negative [facility] UA Auto SS Clarity (U) Clear (10/31/22 11:23 AM) Normal Clear [facility] UA Auto SS Color (U) Yellow (10/31/22 11:23 AM) Normal Yellow [facility] UA Auto SS Epithelial cells.squamous LM.HPF (Urine sed) [#/Area] 0-2 /HPF Normal 0-2/HPF [facility]A Auto SS Glucose Test strip (U) [Mass/Vol] Negative (10/31/22 11:23 AM) Normal Negative [facility] UA Auto SS Hemoglobin Ql (U) Negative (10/31/22 11:23 AM) Normal Negative [facility]A Auto SS Ketones (U) [Mass/Vol] Negative (10/31/22 11:23 AM) Normal Negative [facility] UA Auto SS Prichard.plasma/Lith ium.RBC (Bld) [Mass ratio] 0-3 /HPF Normal 0-3/HPF [facility] UA Auto SS Nitrite Ql (U) Negative (10/31/22 11:23 AM) Normal Negative [facility] UA Auto SS pH (U) 5.5 *NA* (10/31/22 11:23 AM) Invalid Interpretation Code 5.0 - 9.0 [facility] UA Auto SS Protein (U) [Mass/Vol] Negative (10/31/22 11:23 AM) Normal Negative [facility] UA Auto SS Specific gravity (U) [Rel density] 1.025 *NA* (10/31/22 11:23 AM) Invalid Interpretation Code 1.005 - 1.030 [facility] UA Auto SS UA Spec Desc Clean Catch (10/31/22 11:23 AM) Normal [facility] UA Auto SS Urobilinogen Qn (U) [id number] {Elliot'U}/dL Normal 0.0 - 1.0 EU/dL [facility] UA Auto SS WBC Auto Ql (U) Negative (10/31/22 11:23 AM) Normal Negative [facility] UA Auto SS WBC LM.HPF (Urine sed) [#/Area] 0-5 /HPF Normal 0-5/HPF [facility] UA Auto SS CHEMISTRYOrdered By: SYSTEM SYSTEM on 03-07-2022 Anion gap [Moles/Vol] 9 mmol/L Normal 6 - 16 mEq/L [facility] Calcium [Mass/Vol] 8.7 mg/dL Low 8.9 - 11. 1 mg/dL [facility] Chloride [Moles/Vol] 103 mmol/L Normal 101 - 111 mmol/L [facility] CO2 [Moles/Vol] 29 mmol/L Normal 21 - 31 mmol/L [facility] Creatinine [Mass/Vol] 0.9 mg/dL Normal 0.5 - 1.3 mg/dL [facility] GFR/1.73 sq M.predicted among blacks MDRD (S/P/Bld) [Vol rate/Area] mL/min/1.73 m2 Normal >=59mL/min/ 1.73 m2 [facility] Chem S GFR/1.73 sq M.predicted among non-blacks MDRD (S/P/Bld) [Vol rate/Area] mL/min/1.73 m2 Normal >=59mL/min/ 1.73 m2 [facility] Chem S Glucose [Mass/Vol] 101 mg/dL Normal 55 - 199 mg/dL [facility] Potassium [Moles/Vol] 4.3 mmol/L Normal 3.5 - 5.3 mmol/L [facility] Remisol Sodium [Moles/Vol] 137 mmol/L Normal 135 - 145 mmol/L [facility] Remisol Urea nitrogen [Mass/Vol] 21 mg/dL Normal 5 - 21 mg/dL [facility] Remisol Urea nitrogen/Creatinine [Mass ratio] 23 mg/mg High 10 - 20 [facility] Remisol HEMATOLOGYOrdered By: SYSTEM SYSTEM on 03-07-2022 Basophils/100 WBC (Bld) 1.1 % Normal 0.0 - 2.0 % [facility] Basophils/Leukocyte s Auto (Bld) [Pure # fraction] 0.1 E9/L Normal 0.0 - 0.2 E9/L [facility] Eosinophils/100 WBC (Bld) 3.9 % Normal 0.0 - 8.0 % [facility] Eosinophils/Leukocy moses Auto (Bld) [Pure # fraction] 0.2 E9/L Normal 0.0 - 0.5 E9/L [facility] Lymphocytes/100 WBC (Bld) 33.9 % Normal 14.0 - 50.0 % [facility] Lymphocytes/Leukocy moses Auto (Bld) [Pure # fraction] 1.9 E9/L Normal 1.0 - 4.0 E9/L [facility] Monocytes/100 WBC (Bld) 9.9 % Normal 4.0 - 14.0 % [facility] Monocytes/Leukocyte s Auto (Bld) [Pure # fraction] 0.6 E9/L Normal 0.2 - 1.0 E9/L [facility] Neutrophils/100 WBC (Bld) 51.2 % Normal 36.0 - 75.0 % [facility] Neutrophils/Leukocy moses Auto (Bld) [Pure # fraction] 2.9 E9/L Normal 2.0 - 7.5 E9/L [facility] HEMATOLOGYOrdered By: Vivian Linares on 03-07-2022 Erythrocyte distribution width (RBC) [Ratio] 12.8 % Normal 10.9 - 14.2 % [facility] Hematocrit (Bld) [Volume fraction] 38.5 % Normal 34.0 - 46.0 % [facility] Hemoglobin (Bld) [Mass/Vol] 13.0 g/dL Normal 12.0 - 16.0 gm/dL [facility] MCH (RBC) [Entitic mass] 31.3 pg Normal 27.0 - 34.0 pg [facility] MCHC (RBC) [Mass/Vol] 33.8 g/dL Normal 31.4 - 36.0 gm/dL [facility] MCV (RBC) [Entitic vol] 92.4 fL Normal 80.0 - 100.0 fL [facility] Platelet mean volume (Bld) [Entitic vol] 7.2 fL Normal 6.4 - 10.8 fL [facility] Platelets (Bld) [#/Vol] 382.0 E9/L Normal 150.0 - 500.0 E9/L [facility] RBC (Bld) [#/Vol] 4.2 E12/L Low 4.3 - 5.9 E12/L [facility] WBC corrected for nucl RBC Auto (Bld) [#/Vol] 5.6 E9/L Normal 4.0 - 11.0 E9/L [facility] HemeAutoSS POINT OF CARE GLUCOSEon 01-06 Glucose [Mass/Vol] 134 mg/dL Critically high 74-106 [facility] Comment on above: Performed By: #### P OCGLUC #### [facility] [address] [address] [address] Gita Norwood Glucose [Mass/Vol] 101 mg/dL Normal 74-106 [facility] Comment on above: Performed By: #### B MP #### [facility] [address] [address] [address] Gita Norwood [facility]06 SARS-CoV-2 (COVID-19) RNA PRECIOUS+probe Ql (Unsp spec) Not detected Normal NOT DETECTED [facility] Comment on above: Result Comment: This test is not yet approved or cleared by the [place] FDA. When there are no FDA-approved or cleared tests available, and other criteria are met, FDA can make tests available under an emergency access mechanism called an Emergency Use Authorization (EUA). The EUA for this test is supported by the [place] of Health and Human Service's (HHS's) declaration that circumstances exist to justify the emergency use of in vitro diagnostics for the detection and/or diagnosis of the virus that causes COVID-19. This EUA will remain in effect (meaning this test can be used) for the duration of the COVID-19 declaration justifying emergency of IVDs, unless it is terminated or revoked by FDA (after which the test may no longer be used). When diagnostic testing is negative, the possibility of a false negative should be considered in the context of a patient's recent exposures and the presence of clinical signs and symptoms consistent with SARS-CoV-2. Performed By: #### C VDTB #### [facility] [address] [place] [address] Dr. Gita Norwood CBC AUTO DIFFon 01-13-2022 BASO # 0.1 103/ul Normal 0.0-0.1 [facility] Comment on above: Performed By: #### B MP #### [facility] [address] [place] [address] Dr. Gita Norwood Basophils/100 WBC (Bld) 1.1 % Normal 0.2-2.0 [facility] Comment on above: Performed By: #### B MP #### [facility] [address] [place] [address] Dr. Gita Norwood EO # 0.2 103/ul Normal 0.0-0.7 [facility] Comment on above: Performed By: #### B MP #### [facility] [address] [place] [address] Dr. Gita Norwood Eosinophils/100 WBC (Bld) 3.8 % Normal 0.9-7.0 [facility] Comment on above: Performed By: #### B MP #### [facility] [address] [place] [address] Dr. Gita Norwood Erythrocyte distribution width (RBC) [Ratio] 12.3 % Normal 11.0-15.0 [facility] Comment on above: Performed By: #### B MP #### [facility] [address] [place] [address] Dr. Gita Norwood Hematocrit (Bld) [Volume fraction] 41.4 % Normal 36.0-48.0 [facility] Comment on above: Performed By: #### B MP #### [facility] [address] [place] [address] Dr. Gita Norwood Hemoglobin (Bld) [Mass/Vol] 13.2 g/dL Normal 12.0-16.0 [facility] Comment on above: Performed By: #### B MP #### [facility] [address] [place] [address] Dr. Gita Norwood IG # 0.01 10e3/ul Normal 0.00-0.03 [facility] Comment on above: Performed By: #### B MP #### [facility] [address] [place] [address] Dr. Gita Norwood IG % 0.2 % Normal 0.0-0.5 [facility] Comment on above: Performed By: #### B MP #### [facility] [address] [place] [address] Dr. Gita Norwood LYMPH # 1.7 103/ul Normal 1.2-3.8 [facility] Comment on above: Performed By: #### B MP #### [facility] [address] [place] [address] Dr. Gita Norwood Lymphocytes/100 WBC (Bld) 27.2 % Normal 20.5-60.0 [facility] Comment on above: Performed By: #### B MP #### [facility] [address] [place] [address] Dr. Gita Norwood MANUAL DIFF REQ NO Normal [facility] Comment on above: Performed By: #### B MP #### [facility] [address] [place] [address] Dr. Gita Norwood MCH (RBC) [Entitic mass] 30.8 pg Normal 26.7-34.0 [facility] Comment on above: Performed By: #### B MP #### [facility] [address] [place] [address] Dr. Gita Norwood MCHC (RBC) [Mass/Vol] 31.9 g/dL Normal 29.9-35.2 [facility] Comment on above: Performed By: #### B MP #### [facility] [address] [place], [place] [id number] Dr. Gita Norwood MCV (RBC) [Entitic vol] 96.5 fL Normal 81.0-99.0 [facility] Comment on above: Performed By: #### B MP #### [facility] [address] [place] [address] Dr. Gita Norwood MONO # 0.6 103/ul Normal 0.3-0.8 [facility] Comment on above: Performed By: #### B MP #### [facility] [address] [place] [address] Dr. Gita Norwood Monocytes/100 WBC (Bld) 8.8 % Normal 1.7-12.0 [facility] Comment on above: Performed By: #### B MP #### [facility] [address] [place] [address] Dr. Gita Norwood NEUT # 3.8 103/ul Normal 1.4-6.5 [facility] Comment on above: Performed By: #### B MP #### [facility] [address] [place] [address] Dr. Gita Norwood Neutrophils/100 WBC (Bld) 58.9 % Normal 43.0-75.0 [facility] Comment on above: Performed By: #### B MP #### [facility] [address] [place] [address] Dr. Gita Norwood Platelet mean volume (Bld) [Entitic vol] 8.8 fL Critically low 9.5-13.5 [facility] Comment on above: Performed By: #### B MP #### [facility] [address] [place] [address] Dr. Gita Norwood PLT 375 103/ul Normal 150-450 [facility] Comment on above: Performed By: #### B MP #### [facility] [address] [place] [address] Dr. Gita Norwood RBC 4.29 106/ul Normal 4.20-5.40 [facility] Comment on above: Performed By: #### B MP #### [facility] [address] [place] [address] Dr. Gita Norwood WBC 6.4 103/ul Normal 4.0-11.0 [facility] Comment on above: Performed By: #### B MP #### [facility] [address] [place] [address] Dr. Gita Norwood PROF CHEM 8 (BAS METB)on Anion gap [Moles/Vol] 8.5 mmol/L Normal [facility] Comment on above: Performed By: #### B MP #### [facility] [address] [address] [address] Gita Norwood Calcium [Mass/Vol] 8.7 mg/dL Normal 8.5-10.1 [facility] Comment on above: Performed By: #### B MP #### [facility] [address] [place] [address] Dr. Gita Norwood Chloride [Moles/Vol] 103 mmol/L Normal 98-107 [facility] Comment on above: Performed By: #### B MP #### [facility] [address] [place] [address] Dr. Gita Norwood CO2 [Moles/Vol] 30.7 mmol/L Normal 21.0-32.0 [facility] Comment on above: Performed By: #### B MP #### [facility] [address] [place] [address] Dr. Gita Norwood Creatinine [Mass/Vol] 0.88 mg/dL Normal 0.55-1.02 [facility] Comment on above: Performed By: #### B MP #### [facility] [address] [place] [address] Dr. Gtia Norwood EGFR-AF NAMIBIAN >60 Normal >=60 [facility] Comment on above: Performed By: #### B MP #### [facility] [address] [place] [address] Dr. Gita Norwood EGFR-NON AF NAMIBIAN >60 Normal >=60 [facility] Comment on above: Performed By: #### B MP #### [facility] [address] [place] [address] Dr. Gita Norwood Glucose [Mass/Vol] 105 mg/dL Normal 74-106 [facility] Comment on above: Performed By: #### B MP #### [facility] [address] [place], [place] [address] Dr. Gita Norwood Potassium [Moles/Vol] 4.2 mmol/L Normal 3.5-5.1 [facility] Comment on above: Performed By: #### B MP #### [facility] [address] [place], [place] [address] Dr. Gita Norwood Sodium [Moles/Vol] 138 mmol/L Normal 136-145 [facility] Comment on above: Performed By: #### B MP #### [facility] [address] [address] [address] Gita Norwood Urea nitrogen [Mass/Vol] 15.0 mg/dL Normal 7.0-18.0 [facility] Comment on above: Performed By: #### B MP #### [facility] [address] [address] [address] Gita Norwood Urea nitrogen/Creatinine [Mass ratio] 17.0 mg/mg Normal [facility] Comment on above: Performed By: #### B MP #### [facility] [address] [place], [place] [address] Dr. Gita Norwood XR CHEST 2 Von 01-13-2022 XR CHEST 2 V EXAMINATION: XR CHES T 2 V HISTORY: Essential hypertension COMPARISON: No relevant comparison available. FINDINGS: LUNGS: No significant pulmonary parenchymal abnormalities. VASCULATURE: No increased pulmonary vasculature. PLEURA: No pneumothorax, effusion, or pleural thickening. CARDIAC: No cardiomegaly or cardiac silhouette abnormality. MEDIASTINUM: No visible mass or adenopathy. BONES: No fracture or visible bone lesion. OTHER: Negative. IMPRESSION: 1. No acute cardiac point process or significant chronic changes. Electronically authenticated by: DOMENIC MORGAN Date: 2022-01-13 14:58 Normal [facility] CT FOOT RT WO CONon 11-29-19 CT FOOT RT WO CON EXAMINATION: CT FOOT RT WO CON HISTORY: Acquired right hallux rigidus ; evaluate for hardware failure COMPARISON: XR foot right 11/24/2021 TECHNIQUE: Multi-planar CT images were created without IV contrast. Dose reduction techniques were achieved by using automated exposure control and/or adjustment of mA and/or kV according to patient size and/or use of iterative reconstruction technique. 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 No bone fracture or dislocation. Alignment appears maintained. Degenerative enthesopathic spurring of the calcaneus. SOFT TISSUES: No significant soft tissue swelling. EFFUSION: None visible. OTHER: Negative. IMPRESSION: 1. 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 Electronically authenticated by: DOMENIC MORGAN Date: 2021-11-28 10:23 Normal [facility] Basic Metabolic Panelon 12-06 Calcium [Mass/Vol] 9.2 mg/dL Normal 8.2-10.2 [facility] Comment on above: Order Comment: PT FA STED 14 HRS Reason for Exam Hallux rigidus of right foot Result Comment: PERF ORMED BY: [place] [address] PATHOLOGIST PERINATAL NURSE ANNA GAMBLE M.D. Performed By: #### B MP #### [address] Chloride [Moles/Vol] 101 mmol/L Normal 95-114 [facility] Comment on above: Order Comment: PT FA STED 14 HRS Reason for Exam Hallux rigidus of right foot Performed By: #### B MP #### [address] CO2 [Moles/Vol] 26.1 mmol/L Normal 22.0-30.0 [facility] Comment on above: Order Comment: PT FA STED 14 HRS Reason for Exam Hallux rigidus of right foot Performed By: #### B MP #### [address] Creatinine [Mass/Vol] 0.85 mg/dL Normal 0.44-1.03 [facility] Comment on above: Order Comment: PT FA STED 14 HRS Reason for Exam Hallux rigidus of right foot Performed By: #### B MP #### [place] [address] [place] Estimated GFR ( Libby > 60 Normal [facility] Comment on above: Order Comment: PT FA STED 14 HRS Reason for Exam Hallux rigidus of right foot Result Comment: GFR estimated reference range: According to KDOQI guidelines, <60 ml/min/1.73m2 is sufficient to diagnose a patient with chronic kidney disease. Performed By: #### B MP #### [facility] [address] [place] [address] [place] Estimated GFR (Non- Am > 60 Normal [facility] Comment on above: Order Comment: PT FA STED 14 HRS Reason for Exam Hallux rigidus of right foot Performed By: #### B MP #### [facility] [address] Glucose [Mass/Vol] 99 mg/dL Normal 70-100 [facility] Comment on above: Order Comment: PT FA STED 14 HRS Reason for Exam Hallux rigidus of right foot Result Comment: [place] Glucose Reference Range is dependent on time and content of last meal. Glucose of more than 200 mg/dL in a nonstressed, ambulatory subject supports the diagnosis of Diabetes Mellitus. ADA recommended reference range Performed By: #### B MP #### [facility] [address] [place] [address] Potassium [Moles/Vol] 4.7 mmol/L Normal 3.5-5.1 [facility] Comment on above: Order Comment: PT FA STED 14 HRS Reason for Exam Hallux rigidus of right foot Performed By: #### B MP #### [facility] [address] [place] [address] [place] Sodium [Moles/Vol] 139 mmol/L Normal 136-146 [facility] Comment on above: Order Comment: PT FA STED 14 HRS Reason for Exam Hallux rigidus of right foot Performed By: #### B MP #### [facility] [address] [place] [address] Urea nitrogen [Mass/Vol] 18 mg/dL Normal 9-23 [facility] Comment on above: Order Comment: PT FA STED 14 HRS Reason for Exam Hallux rigidus of right foot Performed By: #### B MP #### [address] Complete Blood Count Auto Di ffon 12-15-2020 Basophils (Bld) [#/Vol] 0.1 10*3/uL Normal 0.0-0.2 [facility] Comment on above: Result Comment: PERF ORMED BY: [place] [address] PATHOLOGIST PERINATAL NURSE ANNA GAMBLE M.D. Performed By: #### C BC #### [address] Basophils/100 WBC (Bld) 0.9 % Normal . [facility] Comment on above: Performed By: #### C BC #### [address] Eosinophils (Bld) [#/Vol] 0.2 10*3/uL Normal 0.0-0.45 [facility] Comment on above: Performed By: #### C BC #### [address] Eosinophils/100 WBC (Bld) 2.8 % Normal . [facility] Comment on above: Performed By: #### C BC #### [address] Erythrocyte distribution width (RBC) [Ratio] 12.6 % Normal 11.9-15.3 [facility] Comment on above: Performed By: #### C BC #### [address] Hematocrit (Bld) [Volume fraction] 40.3 % Normal 34.0-46.4 [facility] Comment on above: Performed By: #### C BC #### [address] Hemoglobin (Bld) [Mass/Vol] 13.2 g/dL Normal 11.8-15.4 [facility] Comment on above: Performed By: #### C BC #### [place] [address] [place] Lymphocytes (Bld) [#/Vol] 1.8 10*3/uL Normal 1.00-4.8 [facility] Comment on above: Performed By: #### C BC #### [address] Lymphocytes/100 WBC (Bld) 25.9 % Normal . [facility] Comment on above: Performed By: #### C BC #### [address] MCH (RBC) [Entitic mass] 31.3 pg Normal 24.7-34.3 [facility] Comment on above: Performed By: #### C BC #### [address] MCV (RBC) [Entitic vol] 95.5 fL Normal 80-100 [facility] Comment on above: Performed By: #### C BC #### [address] Mean Corpuscular HGB Conc 32.7 g/dL Normal 32.0-35.0 [facility] Comment on above: Performed By: #### C BC #### [address] Monocytes (Bld) [#/Vol] 0.8 10*3/uL Normal 0.0-0.8 [facility] Comment on above: Performed By: #### C BC #### [address] Monocytes/100 WBC (Bld) 11.1 % Normal . [facility] Comment on above: Performed By: #### C BC #### [place] [address] [place] Neutrophils (Bld) [#/Vol] 4.1 10*3/uL Normal 1.8-7.7 [facility] Comment on above: Performed By: #### C BC #### [address] Neutrophils/100 WBC (Bld) 59.3 % Normal . [facility] Comment on above: Performed By: #### C BC #### [facility] [address] [id number] [place] Nucleated RBC/100 WBC (Bld) [Ratio] 0.0 % Normal 0-0.5 [facility] Comment on above: Performed By: #### C BC #### [facility] [address] [id number] [facility] Platelet mean volume (Bld) [Entitic vol] 7.4 fL Normal 6.3-10.7 [facility] Comment on above: Performed By: #### C BC #### [facility] [address] [place] [address] [place] Platelets (Bld) [#/Vol] 374 10*3/uL Normal 150-450 [facility] Comment on above: Performed By: #### C BC #### [facility] [address] RBC (Bld) [#/Vol] 4.22 10*6/uL Normal 3.60-5.00 [facility] Comment on above: Performed By: #### C BC #### [facility] [address] [place] [address] [place] WBC (Bld) [#/Vol] 6.8 10*3/uL Normal 4.5-11.0 [facility] Comment on above: Performed By: #### C BC #### [address] ECG 12 lead ECGon 12-15-2020 ECG 12 lead ECG [facility] [place] [address] [place] [address] Electrocardiograph Report Signed Patient: Jackeline Cordova MR#: [id number] : 1950 Acct:[id number] Age/Sex: 70 / F ADM Date: 12/15/20 Loc: [place] Room: Type: [facility] Attending Dr: Bobby López DPM Ordering Provider: Bobby López DPM Date of Service: 12/15/20 ECG/ECG 12 lead ECG: see order Copies to: Test Reason : Blood Pressure : / mmHG Vent. Rate : 072 BPM Atrial Rate : 072 BPM P-R Int : 142 ms QRS Dur : 078 ms QT Int : 382 ms P-R-T Axes : 055 043 023 degrees QTc Int : 418 ms Sinus rhythm with occasional premature ventricular complexes Otherwise normal ECG No previous ECGs available Confirmed by KECIA ZELAYA MD ([id number]) on 12/15/2020 7:38:39 PM Referred By: Electronically Signed By:KECIA ZELAYA MD Transcribed By: [facility] Dictated By: Kecia Zelaya MD 12/15/20 1124 Signed By: 12/15/201937 [facility] XR chest 2V*on 12-15-2020 XR chest 2V* [facility] [address] [place] [address] [place] [address] XRay Report Signed Patient: Jackeline Cordova MR#: [id number] : 1950 Acct:[id number] Age/Sex: 70 / F ADM Date: 12/15/20 Loc: [place] Room: Type: [facility] Attending Dr: Bobby López DPM Ordering Provider: Bobby López DPM Date of Service: 12/15/20 XR/XR chest 2V*: M20.21 Copies to: Bobby López DPM Plain film chesttwo-view HISTORY:Presurgical testing for foot surgery COMPARISON:None FINDINGS: The cardiac, mediastinal and hilar silhouettes are within normal limits. No acute lung process, pleural effusion or pneumothorax identified. Thoracic endplate spurs identified. XR/XR chest 2V* IMPRESSION: No acute process. Impression dictated by: Nuno Dunbar M.D.12/15/2020 3:52 PM Dictation Location: [place] [address] Transcribed By: [facility] 12/15/201551 Dictated By: Nuno Dunbar DO 12/15/20 155 Signed By: 12/15/20 155 [facility] MRI WRIST WO IVCON LTon 07- MRI WRIST WO IVCON LT * * *Final Report* * *DATE OF EXAM: Nov 22 2017 1:55PM [facility] 0265 - MRI WRIST WO IVCON LT / REASON: s69.82x Other specified injures of left wrist hand and finger(s) * * * * Physician Interpretation * * * * HISTORY: s69.82x Other specified injures of left wrist hand and finger(s)TECHNIQUE: Routine MRI left wrist without contrastCOMPARISON: NoneRESULT:Triangular fibrocartilage: Degeneration and tearing of the central disc of the triangular fibrocartilage.Scapholunate ligament: Dorsal degenerationLunotriquetral ligament: Not well seen likely due to chronic degeneration. No widening of the lunotriquetral interval.Flexor tendons and carpal tunnel: Within normal limits. Carpal tunnel is within normal limits.Extensor tendons: Edema surrounding extensor digitorum tendons..Bones and bone marrow: Tiny reactive cysts in the first CMC and triscaphe joint and radial side of the lunate. No fractures or marrow replacing lesions.Joint fluid: No joint effusion or synovitis.Small ganglion cyst on the ulnar in volar side of the proximal carpal row and measuring 6 x 4 x 8 mm.Dorsal wrist subcutaneous edema.IMPRESSION:No evidence of fracture.Chronic triangular fibrocartilage degeneration and tearing.Edema around the extensor digitorum tendons and adjacent subcutaneous tissues, likely sequela of soft tissue injury given history of recent traumaNonspecific subcutaneous edema dorsal to the wrist.Human Resource Professional: JANICE Transcribe Date/Time: Nov 22 2017 2:14PDictated by : BONNIE GLASS MDThiandres examination was interpreted and the report reviewed and electronically signed by: YEMI BEAN MD on Nov 22 2017 4:39PM [id number] Normal [facility] PROGRESSon 11-22-2017 Protein HNO ID: [id number] thor: Bal Hua RtService: (none)Author Type: (none)Type: Progress NotesFiled: 11/22/2017 1:39 PMNote Text: Radiology Service Progress NotePATIENT NAME: Jackeline CordovaMRN: [id number] OF SERVICE: November 22, 2017TIME: 1:30 PMPATIENT IDENTITY VERIFICATION COMPLETED USING TWO (2) METHODS: Patientconfirmed name verbally and Date of .PATIENT GENDER DATA: Female. status: : NoBreastfeeding status: NO.PATIENT RELEVANT IMPLANT DATA REVIEWED: YesRADIOLOGY DEPARTMENT: MR; Exam(s) Completed: Upper MSK: Wrist, leftPERIPHERAL IV DATA: Not applicableSIGNED BY: Bal Hua RT(R)Moris 2017 1:38 PM Normal [facility] Vital Signs Date Time Vital Sign Value Performing Clinician Facility 11-27-2024 11:15-0400 Body height 162.6 cm Mignon Diallo MD Work Phone: [facility] 11-27-2024 11:15-0400 Body mass index (BMI) [Ratio] 29.7 kg/m2 Mignon Diallo MD Work Phone: [facility] 11-27-2024 11:15-0400 Body temperature 98.6 [degF] Mignon Diallo MD Work Phone: [facility] 11-27-2024 11:15-0400 Body weight 78.47 kg Mignon Diallo MD Work Phone: [facility] 11-27-2024 11:15-0400 Diastolic blood pressure 80 mm[Hg] Mignon Diallo MD Work Phone: [facility] 11-27-2024 11:15-0400 Heart rate 73 /min Mignon Diallo MD Work Phone: [facility] 11-27-2024 11:15-0400 SaO2% (BldA) [Mass fraction] 98 % Mignon Diallo MD Work Phone: [facility] 11-27-2024 11:15-0400 Systolic blood pressure 136 mm[Hg] Mignon Diallo MD Work Phone: [facility] 10-29-2024 08:41-0400 Body height 162.6 cm Eri Pelayo DO Work Phone: [facility] 10-29-2024 08:41-0400 Body mass index (BMI) [Ratio] 29.7 kg/m2 Eri Pelayo DO Work Phone: [facility] 10-29-2024 08:41-0400 Body weight 78.47 kg Eri Pelayo DO Work Phone: [facility] 01-23-2024 13:09-0400 Body height 162.6 cm Eri Pelayo DO Work Phone: [facility] 01-23-2024 13:09-0400 Body mass index (BMI) [Ratio] 30.9 kg/m2 Eri Pelayo DO Work Phone: [facility] 01-23-2024 13:09-0400 Body weight 81.65 kg Eri Pelayo DO Work Phone: [facility] 11-21-2022 16:48-0400 Heart rate 97 /min Eri Pelayo [facility] 11-21-2022 16:48-0400 SaO2% (BldA) [Mass fraction] 91 % Eri Cynthia [facility] 11-21-2022 16:48-0400 Diastolic blood pressure 90 mm[Hg] Eri Cynthia [facility] 11-21-2022 16:48-0400 Mean blood pressure 100 mm[Hg] Eri Cynthia [facility] 11-21-2022 16:48-0400 Systolic blood pressure 119 mm[Hg] Eri Pelayo [facility] 11-21-2022 15:55-0400 SaO2% (BldA) [Mass fraction] 94 % Eri Cynthia [facility] 11-21-2022 15:50-0400 Heart rate 84 /min Eri Cynthia [facility] 11-21-2022 15:50-0400 SaO2% (BldA) [Mass fraction] 92 % Eri Pelayo [facility] 11-21-2022 15:48-0400 Diastolic blood pressure 78 mm[Hg] E[facility] [facility] 11-21-2022 15:48-0400 Mean blood pressure 97 mm[Hg] Eri Cynthia [facility] 11-21-2022 15:48-0400 Systolic blood pressure 134 mm[Hg] Eri Cynthia [facility] 11-21-2022 15:35-0400 Blood Pressure Location Eri Cynthia [facility] 11-21-2022 15:35-0400 Body temperature 97.7 [degF] Eri Cynthia [facility] 11-21-2022 15:35-0400 Diastolic blood pressure 86 mm[Hg] Eri Cynthia [facility] 11-21-2022 15:35-0400 Heart rate 82 /min Eri Cynthia [facility] 11-21-2022 15:35-0400 Respiratory rate 18 /min Eri Cynthia [facility] 11-21-2022 15:35-0400 Systolic blood pressure 150 mm[Hg] Eri Cynthia [facility] 11-21-2022 15:22-0400 Blood Pressure Location Eri Cynthia [facility] 11-21-2022 15:22-0400 Respiratory rate 23 /min Eri Cynthia [facility] 11-21-2022 15:15-0400 Blood Pressure Location Eri Cynthia [facility] 11-21-2022 15:15-0400 Respiratory rate 11 /min Eri Cynthia [facility] 11-21-2022 14:07-0400 Body temperature 97.7 [degF] Eri Cynthia [facility] 11-21-2022 09:42-0400 Mean blood pressure 105 mm[Hg] Eri Pelayo [facility] 11-21-2022 09:40-0400 Respiratory rate 20 /min Eri Pelayo [facility] 11-21-2022 09:40-0400 Body temperature 98.06 [degF] Eri Cynthia [facility] 10-31-2022 11:14-0400 Diastolic blood pressure 81 mm[Hg] Eri Cynthia [facility] 10-31-2022 11:14-0400 Heart rate 76 /min Eri Pelayo [facility] 10-31-2022 11:14-0400 Mean blood pressure 107 mm[Hg] Eri Cynthia [facility] 10-31-2022 11:14-0400 Systolic blood pressure 158 mm[Hg] Eri Cynthia [facility] 10-31-2022 11:14-0400 Heart rate 89 /min Eri Cynthia [facility] 10-31-2022 11:14-0400 SaO2% (BldA) [Mass fraction] 98 % Eri Pelayo [facility] 10-31-2022 11:13-0400 Diastolic blood pressure 95 mm[Hg] Eri Cynthia [facility] 10-31-2022 11:13-0400 Mean blood pressure 116 mm[Hg] Eri Cynthia [facility] 10-31-2022 11:13-0400 Systolic blood pressure 159 mm[Hg] Eri Cynthia [facility] 10-31-2022 11:13-0400 Body temperature 98.24 [degF] Eri Cynthia [facility] 10-31-2022 11:13-0400 Respiratory rate 16 /min Eri Cynthia [facility] 02-15-2022 09:52-0400 Blood Pressure Location [facility] 02-15-2022 09:52-0400 Body temperature 98.6 [degF] [facility] 02-15-2022 09:52-0400 Diastolic blood pressure 70 mm[Hg] [facility] 02-15-2022 09:52-0400 Heart rate 95 /min [facility] 02-15-2022 09:52-0400 SaO2% (BldA) [Mass fraction] 98 % [facility] 02-15-2022 09:52-0400 Systolic blood pressure 140 mm[Hg] [facility] 10-15-2021 08:53-0400 Blood Pressure Location Bridgett Gudimella [facility] 10-15-2021 08:53-0400 Diastolic blood pressure 72 mm[Hg] Bridgett Gudimella [facility] 10-15-2021 08:53-0400 Heart rate 86 /min Bridgett Gudimella [facility] 10-15-2021 08:53-0400 SaO2% (BldA) [Mass fraction] 97 % Bridgett Gudimella [facility] 10-15-2021 08:53-0400 Systolic blood pressure 132 mm[Hg] Bridgett Gudimella [facility] Encounters Encounter Date Encounter Type Care Provider Facility Start: 01-17-2025 End: 01-17-2025 Follow-up encounter Mignon Diallo MD Work Phone: [facility] Comment on above: Cologuard colon canc er screening Start: 01-07-2025 End: 01-07-2025 Follow-up encounter Mignon Diallo MD Work Phone: [facility] Comment on above: BD BONE DENSITY DEXA MA MAMM SCREEN W/CAD IF PERF AND 3D MAYO Start: 01-03-2025 End: 01-07-2025 Clinisync Result Encounter Mignon Diallo MD Work Phone: [facility] External Department Unsolicited Start: 01-03-2025 End: 01-07-2025 Clinisync Result Encounter Mignon Diallo MD Work Phone: [facility] External Department Unsolicited Start: 01-03-2025 End: 01-03-2025 ambulatory Mignon Diallo Facility:[facility] Start: 12-25-2024 End: 12-25-2024 Telephone encounter Mignon Diallo MD Work Phone: [facility] Comment on above: Care Coordination Start: 11-28-2024 End: 11-28-2024 Follow-up encounter Mignon Diallo MD Work Phone: [facility] Start: 11-27-2024 End: 11-27-2024 Bamboo flowsheet Mignon Diallo MD Work Phone: [facility] Start: 11-27-2024 End: 11-27-2024 Bamboo flowsheet Mignon Diallo MD Work Phone: [facility] Start: 11-27-2024 End: 11-27-2024 Patient encounter procedure Mignon Diallo MD Work Phone: [facility] Comment on above: Medicare annual well ness visit, subsequent (Primary Dx); Atherosclerosis of aorta; Hyperlipidemia, mixed ; Chronic fatigue; Encounter for screening mammogram for malignant neoplasm of breast; Post menopausal syndrome; Encounter for follow-up examination after completed treatment for conditions other than malignant neoplasm; BMI 29.0-29.9,adult; Overweight Start: 11-27-2024 End: 11-27-2024 ambulatory MIGNON DIALLO Not Available Start: 10-29-2024 End: 10-29-2024 Patient encounter procedure Eri Pelayo DO Work Phone: [facility] Comment on above: 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 Dx) Start: 10-29-2024 End: 10-29-2024 ambulatory ERI PELAYO Not Available Start: 01-23-2024 End: 01-23-2024 Patient encounter procedure Eri Pelayo DO Work Phone: [facility] Comment on above: 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 Dx) Start: 01-23-2024 End: 01-23-2024 ambulatory ERI PELAYO Not Available Start: 01-23-2024 End: 01-23-2024 ambulatory ERI PELAYO Not Available Start: 12-01-2023 End: 12-01-2023 Patient encounter procedure SELF REFERRAL [facility] Start: 11-21-2022 End: 11-21-2022 Admission to same day surgery center Eri Pelayo [facility] Start: 10-31-2022 ambulatory Facility:1 [id number] Start: 10-31-2022 End: 10-31-2022 Patient encounter procedure Eri Pelayo [facility] Start: 10-11-2022 End: 10-11-2022 Patient encounter procedure Eri Pelayo [facility] Start: 03-09-2022 End: 03-10-2022 ambulatory MANAV VASQUEZ Facility:[facility] Start: 03-07-2022 End: 03-07-2022 Patient encounter procedure Johnathon Waller [facility] Start: 02-15-2022 End: 02-16-2022 ambulatory ERENDIRA ARANDA Facility:[facility] Start: 02-15-2022 End: 02-15-2022 Patient encounter procedure Johnathon Oscar Worleydaxa [facility] Start: 01-25-2022 Encounter for preprocedural laboratory examination MANAV Oconnell [facility] Start: 01-24-2022 End: 01-24-2022 ambulatory MANAV VASQUEZ Facility:[facility] Start: 01-20-2022 Encounter for preprocedural cardiovascular examination MANAV Anish [facility] Start: 01-20-2022 Encounter for preprocedural laboratory examination MANAV Oconnell [facility] Start: 01-20-2022 End: 01-21-2022 ambulatory MANAV VASQUEZ Facility:[facility] Start: 01-20-2022 End: 01-21-2022 Encounter for preprocedural laboratory examination MANAV VASQUEZ Facility:[facility] Start: 01-13-2022 End: 01-14-[address] DOMENIC MORGAN Facility:[facility] Start: 01-13-2022 End: 01-14-2022 Encounter for preprocedural cardiovascular examination DR DOMENIC MORGAN Facility:[facility] Start: 11-27-2021 End: 11-28-2021 ambulatory MANAV VASQUEZ Facility:[facility] Start: 11-24-2021 End: 11-25-2021 ambulatory MANAV VASQUEZ Facility:[facility] Start: 11-15-2021 End: 11-15-2021 Patient encounter procedure Felicia SOLIS [facility] Start: 10-15-2021 End: 10-15-2021 Patient encounter procedure Bridgett Gudimella [facility] Start: 10-15-2021 End: 10-15-2021 Well adult monitoring check done Bridgett Gudimella [facility] Start: 11-22-2017 End: 11-22-2017 Patient encounter [facility] Procedures Date Procedure Procedure Detail Performing Clinician Start: 01-03-2025 BD BONE DENSITY DEXA Lay galina Diallo MD Work Phone: Start: 01-03-2025 MA MAMM SCREEN W/CAD IF PERF AND 3D MAYO Mignon Diallo MD Work Phone: Start: 10-29-2024 Radex shoulder compl ete minimum 2 views Eri Pelayo DO Work Phone: Start: 01-23-2024 Radex shoulder compl ete minimum 2 views Eri Pelayo DO Work Phone: Start: 11-21-2022 Reverse prosthetic t otal arthroplasty of shoulder Eri Pelayo Start: 01-03-2020 Arthroscopy of shoulder Bridgett Gudimella Comment on above: SHOULDER ARTHROSCOPY Start: 12-26-2017 Arthroscopy of wrist Pr eeti Gudimella Comment on above: Left wrist arthrosco py with chondroplasty proximal carpal row, synovectomy, debridement of degenerative TFCC (triangular fibrocartilage complex) tear Start: 08-27-2012 Colonoscopy Eri sharpe DO Work Phone: Start: 08-27-2012 Colonoscopy Bridgett Gud imella Start: 08-24-2012 Colonoscopy Bridgett Gud imella Appendectomy Bridgett Gudimell a Cataract extraction and insertion of intraocular lens Bridgett Gudimella Comment on above: Bilateral Closed fracture of l eft foot (disorder) Bridgett Gudimella Dilation and curettage Jez i Gudimella Dilation and curettage Jez i Gudimella Comment on above: x 9 H/O: surgery History of toe surgery Johnathon Sridhar Hysterectomy Bridgett Gudimell a Ligation of fallopian tube P serene Juarez 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 Eri Pelayo Repair of musculoten dinous cuff of shoulder Bridgett Joelmella Toe structure (body structure) Johnathon Waller Comment on above: reconstruction Tonsillectomy and adenoidectomy Bridgett Gudimella Wedge resection of ovary Pre dontrell Gudimella Plan of Treatment Date Care Activity Detail Author Start: 11-27-2025 Medicare Annual Wellness (AWV) Medicare Annual Wellness (AWV) [facility] Start: 10-30-2025 End: 10-30-2025 Patient encounter procedure [facility] Start: 01-06-2025 Influenza vaccination Influenza Vacc ine (#1) [facility] Start: 11-27-2024 End: 11-27-2025 CBC W Auto Differential panel - Blood CBC and differential Lab Routine Chronic fatigue Expected: 11/27/2024 (Approximate), Expires: 11/27/2025 [facility] Work Phone: Comment on above: Expected: 11/27/2024 (Approximate), Expires: 11/27/2025 Start: 11-27-2024 End: 11-27-2025 Comprehensive metabolic 2000 panel - Serum or Plasma Comprehensive metabolic panel Lab Routine Chronic fatigue Expected: 11/27/2024 (Approximate), Expires: 11/27/2025 [facility] Comment on above: Expected: 11/27/2024 (Approximate), Expires: 11/27/2025 Start: 11-27-2024 End: 01-28-2026 DBT Breast - bilateral screening Bilateral screening mammogram with tomosynthesis Imaging Routine Encounter for screening mammogram for malignant neoplasm of breast Expected: 11/27/2024, Expires: 01/28/2026 [facility] Comment on above: Expected: 11/27/2024 , Expires: 01/28/2026 Start: 11-27-2024 End: 11-27-2025 DXA Skeletal system Views for bone density DEXA bone density Imaging Routine Post menopausal syndrome Encounter for follow-up examination after completed treatment for conditions other than malignant neoplasm Expected: 11/27/2024, Expires: 11/27/2025 [facility] Comment on above: Expected: 11/27/2024 , Expires: 11/27/2025 Start: 11-27-2024 End: 11-27-2025 Lipid 1996 panel - Serum or Plasma Lipid panel Lab Routine Atherosclerosis of aorta Hyperlipidemia, mixed Expected: 11/27/2024 (Approximate), Expires: 11/27/2025 [facility] Comment on above: Expected: 11/27/2024 (Approximate), Expires: 11/27/2025 Start: 11-27-2024 End: 11-27-2025 TSH REFLEX TO T4F TSH REFLEX TO T4F Lab Routine Chronic fatigue Expected: 11/27/2024 (Approximate), Expires: 11/27/2025 [facility] Comment on above: Expected: 11/27/2024 (Approximate), Expires: 11/27/2025 Start: 11-27-2024 End: 11-27-2024 Patient encounter procedure 11/27/2024 11:00 AM EDT Office Visit [facility] [address] [place] [address] Mignon Diallo MD [address] [place] [address] Arrived [facility] Comment on above: Arrived Start: 11-20-2024 End: 11-20-2024 Patient encounter procedure [facility] Start: 11-19-2024 Medicare Annual Wellness (AWV) Medicare Annual Wellness (AWV) [facility] Start: 10-26-2024 Screening for malign ant neoplasm of colon [facility] Start: 10-24-2024 End: 10-24-2024 Patient encounter procedure 10/24/2024 10:30 AM EDT Office Visit [facility] [address] [place] [id number] Eri Pelayo DO [address] [place] [address] [facility] Start: 01-07-2024 Influenza vaccination Influenza Vacc ine (#1) [facility] Start: 08-27-2022 Screening for malign ant neoplasm of colon Colonoscopy [facility] Start: 1950 Screening for malign ant neoplasm of colon [facility] Immunizations Immunization Date Immunization Notes Care Provider Fa cility 02-06-2024 influenza virus vacc ine, unspecified formulation Mignon Diallo MD Work Phone: [facility] 01-17-2023 Influenza, Seasonal, Quadrivalent, Adjuvanted Eri Pelayo DO Work Phone: [facility] 01-17-2023 zoster vaccine recombinant Eri Pelayo DO Work Phone: [facility] 01-17-2023 influenza virus vacc ine, unspecified formulation Eri Pelayo DO Work Phone: [facility] 02-19-2022 Moderna Bivalent Tena ster Vaccination Eri Pelayo DO Work Phone: [facility] 01-19-2022 influenza virus vacc ine, unspecified formulation Johnathon Waller [facility] 01-19-2022 Influenza, injectabl e, Madin Kori Canine Kidney, preservative free, quadrivalent Eri Pelayo DO Work Phone: [facility] 10-01-2021 SARS-CoV-2 (COVID-19 ) mRNA-[id number] vaccine Bridgett Gudimella [facility] 03-11-2021 SARS-CoV-2 (COVID-19 ) mRNA-[id number] vaccine Bridgett Gudimella [facility] Comment on above: Result Comment: card scanned 01-25-2021 influenza, high dose seasonal, preservative-free Bridgett Gudimella [facility] 08-05-2020 SARS-CoV-2 (COVID-19 ) mRNA-1273 vaccine Bridgett Gudila [facility] 07-08-2020 SARS-CoV-2 (COVID-19 ) mRNA-[id number] vaccine Bridgett [facility] 03-09-2020 influenza virus vacc ine, unspecified formulation [facility] 02-06-2020 influenza, injectabl e, quadrivalent, contains preservative [employer] DO Work Phone: [facility] 01-16-2019 influenza virus vacc ine, unspecified formulation [facility] 01-16-2019 influenza, high dose seasonal, preservative-free Eri Pelayo DO Work Phone: [facility] 01-06-2019 influenza, injectabl e, quadrivalent, contains preservative Eri Pelayo DO Work Phone: [facility] 03-07-2018 influenza virus vacc ine, unspecified formulation [employer] DO Work Phone: [facility] 01-11-2018 influenza virus vacc ine, unspecified formulation [facility] 01-11-2018 influenza, high dose seasonal, preservative-free Eri Pelayo DO Work Phone: [facility] 02-06-2017 influenza virus vacc ine, unspecified formulation [facility] 02-06-2017 influenza, injectabl e, quadrivalent, preservative free Eri Pelayo DO Work Phone: [facility] 02-06-2017 pneumococcal polysaccharide vaccine, 23 valent Bridgett Gudimella [facility] 02-02-2017 influenza virus vacc ine, unspecified formulation Bridgett Gudimella [facility] 02-02-2017 influenza, high dose seasonal, preservative-free Eri Pelayo DO Work Phone: [facility] 01-06-2017 influenza virus vacc ine, unspecified formulation [employer] DO Work Phone: [facility] 01-26-2016 influenza virus vacc ine, unspecified formulation Bridgett Gudimella [facility] 01-26-2016 influenza, high dose seasonal, preservative-free Eri Pelayo DO Work Phone: [facility] 05-08-2015 influenza virus vacc ine, unspecified formulation [employer] DO Work Phone: [facility] 02-25-2015 pneumococcal conjuga te vaccine, 13 valent Bridgett Gudimella [facility] 01-28-2015 influenza virus vacc ine, unspecified formulation Bridgett Gudimella [facility] 01-28-2015 influenza, high dose seasonal, preservative-free Eri Pelayo DO Work Phone: [facility] 05-08-2014 pneumococcal conjuga te vaccine, 13 valent [employer] DO Work Phone: [facility] 02-28-2014 influenza virus vacc ine, unspecified formulation Bridgett Gudimella [facility] 02-28-2014 influenza, seasonal, injectable Eri Pelayo DO Work Phone: [facility] 11-11-2013 pneumococcal polysaccharide vaccine, 23 valent Bridgett Gudimella [facility] 05-10-2013 influenza virus vacc ine, whole virus Eri Pelayo DO Work Phone: [facility] 05-10-2013 influenza, whole Bridgett Gudi dutch [facility] 05-08-2012 pneumococcal polysaccharide vaccine, 23 valent Eri Pelayo DO Work Phone: [facility] 02-09-2012 influenza virus vacc ine, whole virus Eri Pelayo DO Work Phone: [facility] 02-09-2012 influenza, whole Bridgett Gudi dutch [facility] 03-01-2011 influenza virus vacc ine, whole virus Eri Pelayo DO Work Phone: [facility] 03-01-2011 influenza, whole Bridgett Gudi dutch [facility] 01-30-2010 influenza virus vacc ine, whole virus Eri Pelayo DO Work Phone: [facility] 01-30-2010 influenza, whole Bridgett Gudi dutch [facility] 04-22-2009 novel influenza-H1N1 -09, preservative-free, injectable Eri Pelayo DO Work Phone: [facility] Payers Date Payer Category Payer Private Health Insurance [id number] 2023 Medicare [id number] 2013 Medicare [id number] 1959 Medicare [id number] 1959 Unknown [id number] 1948 Unknown [id number] 2.16.84 [id number] 1948 Unknown [id number] 2.16.84 [id number] 1948 Unknown [id number] 2.16.84 [id number] 1948 Unknown [id number] 2.16.84 [id number] 1948 Unknown [id number] 2.16.84 [id number] 1948 Unknown [id number] 2.16.84 [id number] 1948 Unknown [id number] 2.16.84 [id number] 1948 Unknown [id number] 2.16. [id number] 1948 Unknown [id number] 2.16.8 [id number] 1948 Unknown [id number] 2.16.8 [id number] 1948 Unknown [id number] 2.16.8 [id number] 1948 Unknown [id number] 2.16.84 [id number] 1948 Unknown [id number] 2.16.84 [id number] 1948 Unknown [id number] 2.16.8 [id number] Social History Date Type Detail Facility Start: 12-18-2020 End: 02-15-2022 Tobacco smoking status Ex-smoker (finding) [facility] Comment on above: Former history, quit 1984 with 5 year history Tobacco smoking status Never [facility] Comment on above: Former history, quit 1984 with 5 year history Start: 10-17-2022 End: 11-27-2024 Sex Assigned At Female [facility] Tobacco smoking status No Smokin g Status Entered [facility] Start: 10-04-2022 Tobacco smoking stat us NDIS Never smoked tobacco [facility] Start: 10-04-2022 Tobacco use and exposure Smoke less tobacco non-user [facility] Start: 01-23-2024 End: 11-27-2024 Alcoholic beverage intake Current drinker of alcohol (finding) [facility] Start: 10-17-2022 End: 01-23-2024 Alcoholic beverage intake [facility] Within the last year , have you been afraid of your partner or ex-partner? No [facility] Do you belong to any clubs or organizations such as confucianism groups, unions, fraternal or athletic groups, or school groups? Yes [facility] Are you now , , , , never or living with a partner? [facility] How often to you hav e a drink containing alcohol? 4 or more times a week [facility] How many standard dr inks containing alcohol do you have on a typical day? 3 or 4 [facility] How often do you hav e 6 or more drinks on 1 occasion? Never [facility] Do you feel stress - tense, restless, nervous, or anxious, or unable to sleep at night because your mind is troubled all the time - these days [OSQ] Not at all [facility] (I/We) worried wheth er (my/our) food would run out before (I/we) got money to buy more. Never true [facility] Start: 10-18-2022 Alcohol Comment Caffeine intak e: 1-2 cups per day green tea [facility] Start: 1950 Sex assigned at Not on file N [facility] Medical Equipment Procedure Code Equipment Code Equipment Origin al Text Equipment Identifier Dates FDA Start: 01-03-2020 FDA Start: 01-03-2020 SHOULDER ARTHROS COPY W/ POSSIBLE REPAIR Unknown 01/03/20 Non Biological Shoulder R FDA Start: 01-03-2020 SHOULDER ARTHROS COPY W/ POSSIBLE REPAIR Unknown 01/03/20 Non Biological Shoulder R FDA Start: 01-03-2020 SHOULDER ARTHROS COPY W/ POSSIBLE REPAIR Unknown 01/03/20 Non Biological Shoulder R FDA Start: 01-03-2020 SHOULDER ARTHROS COPY W/ POSSIBLE REPAIR Unknown 01/03/20 Non Biological Shoulder R FDA Start: 01-03-2020 SHOULDER ARTHROS COPY W/ POSSIBLE REPAIR Unknown 01/03/20 Non Biological Shoulder R FDA Start: 01-03-2020 SHOULDER ARTHROS COPY W/ POSSIBLE REPAIR Unknown 01/03/20 Non Biological Shoulder R FDA Start: 01-03-2020 SHOULDER ARTHROS COPY W/ POSSIBLE REPAIR Unknown 01/03/20 Non Biological Shoulder R FDA Start: 01-03-2020 SHOULDER ARTHROS COPY W/ POSSIBLE REPAIR Unknown 01/03/20 Non Biological Shoulder R FDA Start: 01-03-2020 SHOULDER ARTHROS COPY W/ POSSIBLE REPAIR Unknown 01/03/20 Non Biological Shoulder R FDA Start: 01-03-2020 SHOULDER ARTHROS COPY W/ POSSIBLE REPAIR Unknown 01/03/20 Non Biological Shoulder R FDA Start: 01-03-2020 SHOULDER ARTHROS COPY W/ POSSIBLE REPAIR Unknown 01/03/20 Non Biological Shoulder R FDA Start: 01-03-2020 SHOULDER ARTHROS COPY W/ POSSIBLE REPAIR Unknown 01/03/20 Non Biological Shoulder R FDA Start: 01-03-2020 SHOULDER TOTAL ARTHROPLASTY Eri Pelayo DO 11/21/22 Unknown Shoulder R FDA Start: 11-21-2022 SHOULDER TOTAL ARTHROPLASTY Eri Pelayo DO 11/21/22 Unknown Shoulder R FDA Start: 11-21-2022 SHOULDER TOTAL ARTHROPLASTY Eri Pelayo DO 11/21/22 Unknown Shoulder R FDA Start: 11-21-2022 SHOULDER TOTAL ARTHROPLASTY Eri Pelayo DO 11/21/22 Unknown Shoulder R FDA Start: 11-21-2022 SHOULDER TOTAL ARTHROPLASTY Pelayo Eri GREEN[employer]OD 11/21/22 Unknown Shoulder R FDA Start: 11-21-2022 SHOULDER TOTAL ARTHROPLASTY Pelayo DO, Eri T 11/21/22 Unknown Shoulder R FDA Start: 11-21-2022 SHOULDER TOTAL ARTHROPLASTY Pelayo DO, Eri T 11/21/22 Unknown Shoulder R FDA Start: 11-21-2022 SHOULDER ARTHROS COPY W/ POSSIBLE REPAIR Unknown 01/03/20 Non Biological Shoulder R FDA Start: 01-03-2020 SHOULDER ARTHROS COPY W/ POSSIBLE REPAIR Unknown 01/03/20 Non Biological Shoulder R FDA Start: 01-03-2020 SHOULDER TOTAL ARTHROPLASTY Pelayo DO, Eri T 11/21/22 Unknown Shoulder R FDA Start: 11-21-2022 SHOULDER TOTAL ARTHROPLASTY Pelayo DO, Eri T 11/21/22 Unknown Shoulder R FDA Start: 11-21-2022 SHOULDER TOTAL ARTHROPLASTY Pelayo DO, Eri T 11/21/22 Unknown Shoulder R FDA Start: 11-21-2022 SHOULDER TOTAL ARTHROPLASTY Pelayo DO, Eri T 11/21/22 Unknown Shoulder R FDA Start: 11-21-2022 SHOULDER TOTAL ARTHROPLASTY Pelayo DO, Eri T 11/21/22 Unknown Shoulder R FDA Start: 11-21-2022 SHOULDER TOTAL ARTHROPLASTY Pelayo DO, Eri T 11/21/22 Unknown Shoulder R FDA Start: 11-21-2022 SHOULDER TOTAL ARTHROPLASTY Pelayo DO, Eri T 11/21/22 Unknown Shoulder R FDA Start: 11-21-2022 Goals Date Patient Goal Desired Activity /State Personal health goal Functional Status Date Assessment Result Facility 11-27-2024 Patient Health Quest ionnaire 2 item (PHQ-2) [Reported] [facility] 10-31-2022 Functional Status No [facility] 02-15-2022 Functional Status N/A [facility] Clinical Notes 10-15-2021 to 12-25-2024 Telephone Encounter - Sander Craig - 12/25/2024 11:49 AM EDTTelephone Encounter - Sander Craig - 12/25/2024 11:49 AM Bandar Diallo MD - 11/27/2024 11:00 AM EDTRadiologyLaboratory Note Date & Type Note Facility 12-25-2024 Telephone encounter Note Pt called in she was here in November and said a Cologuard was to be ordered and she has not received that yet, Could that be ordered Please [facility] 12-25-2024 Miscellaneous Notes Pt called in she was here in November and said a Cologuard was to be ordered and she has not received that yet, Could that be ordered Please documented in this encounter [facility] 11-27-2024 History of Present illness Narrative Images from the original note were not included. Subjective : Chief Complaint: Jackeline Cordova is an 74 y.o. female here for an annual wellness visit. I have reviewed and reconciled the medication list with the patient today. Current Outpatient Medications Medication Sig Dispense Refill EPINEPHrine (Epipen) 0.3 MG/0.3ML injection syringe INJECT 1 AUTO-INJECTOR EVERY DAY NEEDED No current facility-administered medications for this visit. Review of Systems General: Denies fever, chills, fatigue, LAY or weight loss/gain CV: Denies CP, palpitations or swelling in legs Resp: denies cough, SOB or wheezing GI: Denies abd pain/n/v/c/d Skin: Denies rash Neuro: Denies LH or dizziness List of current healthcare providers: Patient Care Team: Mignon Diallo MD as PCP - General (Family Medicine) Medicare Annual Visit Over the past 2 weeks, how often have you been bothered by any of the following problems? Little interest or pleasure in doing things: Not at all Feeling down, depressed, or hopeless: Not at all Patient Health Questionnaire-2 Score: 0 Brown Fall Risk History of Falling, Immediate or Within 3 Months: No Secondary Diagnosis: No Ambulatory Aid: Walks without aid/bedrest/nurse assist Intravenous Therapy/Heparin Lock: No Gait/Transferring: Normal/bedrest/immobile Mental Status: Oriented to own ability Brown Fall Risk Score: 0 Health Risk Assessment Form Do you need help eating, bathing, using the toilet, dressing, or getting around your home?: No Can you prepare your own meals?: Yes Can you do your own housework without help?: Yes Can you shop for groceries or clothes without help?: Yes Do you exercise for about 20 minutes 3 or more days a week?: Yes How confident are you that you can control and manage most of your health problems?: Very confident Can you mange your money, credit cards and accounts, pay bills and taxes?: Yes Vision Screening: Yes, no gross abnormalities Hearing Screening: Yes, no gross abnormalities Cognitive Screening Self Assessment: No overt cognitive deficiency is apparent by direct observation Three Word Registration: Apple, Watch, Diane Clock Drawing: Normal Clock - 2 Three Word Recall: All 3 words correct - 3 Total Score (0-5 Points): 5 Pain Assessment Pain Score: 0 - No pain Objective : BP 136/80 (BP Location: Left arm, Patient Position: Sitting, BP Cuff Size: Adult) Pulse 73 Temp 98.6 F (Temporal) Ht 5' 4 Wt 173 lb SpO2 98% BMI 29.70 kg/m No results found. Physical Exam General: alert & oriented, NAD Head: NC/AT Oral Cavity: MMM Skin: warm, dry Heart: RRR, No m/r/g, S1S2 nml Lungs: CTA b/l Abdomen: soft, ND/NT, BS wnl Musculoskeletal: normal gait Extremities: no clubbing, cyanosis or edema Neurological: nonfocal Psych: mood/affect full range Assessment/Plan : Problem List Items Addressed This Visit Atherosclerosis of aorta Relevant Orders Lipid panel Hyperlipidemia, mixed Relevant Orders Lipid panel Other Visit Diagnoses Medicare annual wellness visit, subsequent - Primary Chronic fatigue Relevant Orders CBC and differential Comprehensive metabolic panel TSH REFLEX TO T4F Encounter for screening mammogram for malignant neoplasm of breast Relevant Orders Bilateral screening mammogram with tomosynthesis Post menopausal syndrome Relevant Orders DEXA bone density Encounter for follow-up examination after completed treatment for conditions other than malignant neoplasm Relevant Orders DEXA bone density BMI 29.0-29.9,adult Overweight The following health maintenance schedule was reviewed with the patient and provided in printed form in the after visit summary: Health Maintenance Topic Date Due Influenza Vaccine (1) 01/06/2025 Medicare Annual Wellness (AWV) 11/27/2025 Pneumococcal Vaccine: 65+ Years Completed Mammogram Discontinued Colorectal Cancer Screening Discontinued Advance Care Planning Discussed Orders Placed This Encounter Procedures Bilateral screening mammogram with tomosynthesis Standing Status: Future Expected Date: 11/27/2024 Expiration Date: 01/28/2026 Reason for exam:: screen DEXA bone density Standing Status: Future Expected Date: 11/27/2024 Expiration Date: 11/27/2025 Reason for exam:: screen CBC and differential Standing Status: Future Number of Occurrences: 1 Expected Date: 11/27/2024 Expiration Date: 11/27/2025 Print requisition?: No Comprehensive metabolic panel Standing Status: Future Number of Occurrences: 1 Expected Date: 11/27/2024 Expiration Date: 11/27/2025 Print requisition?: No Lipid panel Standing Status: Future Number of Occurrences: 1 Expected Date: 11/27/2024 Expiration Date: 11/27/2025 Print requisition?: No TSH REFLEX TO T4F Standing Status: Future Number of Occurrences: 1 Expected Date: 11/27/2024 Expiration Date: 11/27/2025 Print requisition?: No documented in this encounter [facility] 10-29-2024 History of Present illness Narrative Images from the original note were not included. Jackeline Cordova is a 74 y.o. female presents with chief complaint of follow up right reverse total shoulder arthroplasty. HPI: Jackeline is here for her right shoulder replacement. She is approximately two years out. Pain is in general doing well. She does feel that the skin tethers distally at the incisional area. She does feel weak still where she cannot throw darts or do a lot of lifting with the shoulder. She has no real pain. She is able to lay on it. She denies any numbness or tingling. She does come in emotional today which her boyfriend is in the hospital with a diagnosis of cancer, waiting to find out additional options. SUBJECTIVE: MEDICATIONS: Current Outpatient Medications Medication Instructions EPINEPHrine (Epipen) 0.3 MG/0.3ML injection syringe INJECT 1 AUTO-INJECTOR EVERY DAY NEEDED ALLERGIES: Allergies Allergen Reactions Bee Venom Unknown Other Reaction(s): Shortness of breath Yellow Jacket Venom Shortness of breath Nabumetone Hives and Unknown Pravastatin Hives Honey Bee Venom Poison Patti Extract Other Reaction(s): Not available Red Dye #40 (Allura Red) Unknown SURGICAL HISTORY: Past Surgical History: Procedure Laterality Date ACHILLES TENDON SURGERY 2019 APPENDECTOMY 1966 BUNIONECTOMY 12/23/2020 Dr. Bobby López EYE SURGERY 2020 FOOT FRACTURE SURGERY Left 2019 bone spur/stress fx repair FRACTURE SURGERY 2021 HYSTERECTOMY 1982 ROTATOR CUFF REPAIR 2002 ROTATOR CUFF REPAIR 01/03/2020 Dr Pelayo TOE SURGERY Right 01/2022 TONSILLECTOMY 195 TUBAL LIGATION 1979 WRIST ARTHROSCOPY W/ TRIANGULAR FIBROCARTILAGE REPAIR Left 12/26/2017 FAMILY HISTORY: Family History Problem Relation Name Age of Onset Cancer Mother Ayana Corona Hypertension Sibling Hypertension Daughter Mindy Cordova SOCIAL HISTORY: Social History Tobacco Use Smoking status: Never Smokeless tobacco: Never Vaping Use Vaping status: Never Used Substance Use Topics Alcohol use: Yes Alcohol/week: 12.0 standard drinks of alcohol Types: 12 Standard drinks or equivalent per week Comment: Caffeine intake: 1-2 cups per day green tea Drug use: Never Depression: Not at risk (11/20/2023) PHQ-2 PHQ-2 Score: 0 REVIEW OF SYMPTOMS: The review of systems, history and current medications list are all reviewed today. OBJECTIVE: Visit Vitals Ht 5' 4 Wt 173 lb BMI 29.70 kg/m Smoking Status Never BSA 1.88 m Physical Exam On physical exam, the incision is clean, dry and intact. The lower 1 cm of the incision has mild scarring. There is some moderate thickening of the pec major tendon which seems to be the tight area. Her forward flexion is near full. Abduction and rotation shows mild to moderate stiffness, but markedly improved through the months. Her strength is improving as well with mild to moderate deficit. Deltoid is intact. The acromion is intact. The patient is neurovascularly intact distally. There is no sign of rash or infectious process. Two view x-rays AP and Y views saved to the permanent record in the [place] office show stable position and alignment of the reverse arthroplasty. There is no subluxation or dislocation seen. ASSESSMENT AND PLAN: Assessment/Plan Follow up right reverse total shoulder arthroplasty. The nature of the findings were discussed at length. Physical therapy script was re-provided which they can do [place] as well as other modalities, continue progression of strengthening. Follow up will be in one year for repeat x-ray and exam, sooner if worse. She voices verbal understanding. She is discharged in stable condition. Numerous questions were answered. The patient was seen and examined. From the time of check in, nurse triage, vital signs, x-ray, x-ray interpretation, review of systems, comprehensive history and physical exam as well as setting up treatment plan and further management took 35 minutes. Cosigned by Eri Pelayo DO at 10/31/2024 4:49 PM EDT documented in this encounter [facility] 01-23-2024 History of Present illness Narrative Images from the original note were not included. Jackeline Cordova is a 73 y.o. female presents with chief complaint of follow up right reverse total shoulder arthroplasty. HPI: Jackeline is doing much better with her shoulder. She is approximately 13-14 months out from the procedure. Therapy has been very happy. Summer has gone better. She leaves for [place] soon. She still has some tightness and stiffness and occasional achiness, but overall her pain scores have improved significantly. Her motion parameters have improved as well. She has no click, clunk or instability. She denies numbness or tingling. No fever or chills. SUBJECTIVE: MEDICATIONS: No current outpatient medications ALLERGIES: Allergies Allergen Reactions Bee Venom Unknown Other Reaction(s): Shortness of breath Yellow Jacket Venom Shortness of breath Nabumetone Hives and Unknown Pravastatin Hives Honey Bee Venom Red Dye #40 (Allura Red) Unknown SURGICAL HISTORY: Past Surgical History: Procedure Laterality Date ACHILLES TENDON SURGERY 2019 APPENDECTOMY 1966 BUNIONECTOMY 12/23/2020 Dr. Bobby López FOOT FRACTURE SURGERY Left 2019 bone spur/stress fx repair HYSTERECTOMY 1982 ROTATOR CUFF REPAIR 2002 ROTATOR CUFF REPAIR 01/03/2020 Dr Pelayo TOE SURGERY Right 01/2022 TONSILLECTOMY 195 WRIST ARTHROSCOPY W/ TRIANGULAR FIBROCARTILAGE REPAIR Left 12/26/2017 FAMILY HISTORY: Family History Problem Relation Name Age of Onset Cancer Mother Ayana Corona Hypertension Sibling Hypertension Daughter SOCIAL HISTORY: Social History Tobacco Use Smoking status: Never Smokeless tobacco: Never Vaping Use Vaping status: Never Used Substance Use Topics Alcohol use: Yes Alcohol/week: 12.0 standard drinks of alcohol Types: 12 Standard drinks or equivalent per week Comment: Caffeine intake: 1-2 cups per day green tea Drug use: Never Depression: Not at risk (11/20/2023) PHQ-2 PHQ-2 Score: 0 REVIEW OF SYMPTOMS: The review of systems, history and current medications list are all reviewed today. OBJECTIVE: Visit Vitals Ht 5' 4 Wt 180 lb BMI 30.90 kg/m Smoking Status Never BSA 1.92 m Physical Exam On physical exam, the incisions are clean, dry and intact. She has a stable prosthesis without click, clunk or mechanical symptoms. Her active motion is much improved of which she forward flexes with mild restriction, abduction and rotation shows mild to moderate restriction. Her deltoid strength is improving. Her deltoid tonicity and pain is near resolved. She has some mild inferior incisional discomfort. No sign of neuroma or infection. X-rays and imaging permanently saved to the patient's record were reviewed two views AP and Y saved to the permanent record in the [place] office show stable position and alignment of the right reverse prosthesis. There is no discernable sign of loosening or infection. ASSESSMENT AND PLAN: Assessment/Plan Follow up right reverse total shoulder arthroplasty. The nature of the findings were discussed at length. She will continue to improve. We discussed wall, pendulum and titi exercises, stretching. She is markedly improved compared to her preoperative status, not only with pain control, but also range of motion. She will continue to work with this. She has made good strong interval progression from last visit. I will see her back in the September-October time frame for x-ray and exam, sooner if worse. Any increasing pain, problems or issues will be reported. Numerous questions were answered. She is discharged in stable condition. The patient was seen and examined. From the time of check in, nurse triage, vital signs, x-ray, x-ray interpretation, review of systems, comprehensive history and physical exam as well as setting up treatment plan and further management took 35 minutes. documented in this encounter [facility] 11-21-2022 Hospital Discharge instructions Patient Education 11/21/2022 15:01:03 Shoulder Cryocuff Patient Instructions - FT (CUSTOM) 11/21/2022 15:00:58 How to Use an Incentive Spirometer How to Use an Incentive Spirometer An incentive spirometer is a tool that measures how well you are filling your lungs with each breath. Learning to take long, deep breaths using this tool can help you keep your lungs clear and active. This may help to reverse or lessen your chance of developing breathing (pulmonary) problems, especially infection. You may be asked to use a spirometer: After a surgery. If you have a lung problem or a history of smoking. After a long period of time when you have been unable to move or be active. If the spirometer includes an indicator to show the highest number that you have reached, your health care provider or respiratory therapist will help you set a goal. Keep a log of your progress as told by your health care provider. What are the risks? Breathing too quickly may cause dizziness or cause you to pass out. Take your time so you do not get dizzy or light-headed. If you are in pain, you may need to take pain medicine before doing incentive spirometry. It is harder to take a deep breath if you are having pain. How to use your incentive spirometer 1.Sit up on the edge of your bed or on a chair. 2.Hold the incentive spirometer so that it is in an upright position. 3.Before you use the spirometer, breathe out normally. 4.Place the mouthpiece in your mouth. Make sure your lips are closed tightly around it. 5.Breathe in slowly and as deeply as you can through your mouth, causing the piston or the ball to rise toward the top of the chamber. 6.Hold your breath for 3 5 seconds, or for as long as possible. If the spirometer includes a graduation coach indicator, use this to guide you in breathing. Slow down your breathing if the indicator goes above the marked areas. 7.Remove the mouthpiece from your mouth and breathe out normally. The piston or ball will return to the bottom of the chamber. 8.Rest for a few seconds, then repeat the steps 10 or more times. Take your time and take a few normal breaths between deep breaths so that you do not get dizzy or light-headed. Do this every 1 2 hours when you are awake. 9.If the spirometer includes a goal marker to show the highest number you have reached (best effort), use this as a goal to work toward during each repetition. 10.After each set of 10 deep breaths, cough a few times. This will help to make sure that your lungs are clear. If you have an incision on your chest or abdomen from surgery, place a pillow or a rolled-up towel firmly against the incision when you cough. This can help to reduce pain while taking deep breaths and coughing. General tips When you are able to get out of bed: ?Walk around often. ?Continue to take deep breaths and cough in order to clear your lungs. Keep using the incentive spirometer until your health care provider says it is okay to stop using it. If you have been in the hospital, you may be told to keep using the spirometer at home. Contact a health care provider if: You are having difficulty using the spirometer. You have trouble using the spirometer as often as instructed. Your pain medicine is not giving enough relief for you to use the spirometer as told. You have a fever. Get help right away if: You develop shortness of breath. You develop a cough with bloody mucus from the lungs. You have fluid or blood coming from an incision site after you cough. Summary An incentive spirometer is a tool that can help you learn to take long, deep breaths to keep your lungs clear and active. You may be asked to use a spirometer after a surgery, if you have a lung problem or a history of smoking, or if you have been inactive for a long period of time. Use your incentive spirometer as instructed every 1 2 hours while you are awake. If you have an incision on your chest or abdomen, place a pillow or a rolled-up towel firmly against your incision when you cough. This will help to reduce pain. Get help right away if you have shortness of breath, you cough up bloody mucus, or blood comes from your incision when you cough. This information is not intended to replace advice given to you by your health care provider. Make sure you discuss any questions you have with your health care provider. Document Revised: 07/13/2020 Document Reviewed: 07/13/2020 [email or web address] Patient Education 2022 [employer] 11/21/2022 15:00:50 Post Op Patient Instructions - FT (CUSTOM) 11/21/2022 13:02:10 Shoulder Cryocuff Patient Instructions - FT (CUSTOM) 11/21/2022 13:02:08 Post Op Patient Instructions - FT (CUSTOM) 11/18/2022 10:32:45 Tracie López - Shoulder Replacement (CUSTOM) [place], [place] [facility] DISCHARGE INSTRUCTIONS: SHOULDER REPLACEMENT MEDICATIONS You will be given a prescription for pain medication. This should be taken with food as needed. This may cause stomach upset, dizziness, and possible constipation. Please notify the office if you have any medication allergies to this type of medication or if any problems develop with the medication. DRESSING CHANGES Leave your bandage in place until your follow up visit. The bandage is waterproof, so you may shower it home. Any increase in pain, temperature over 101 degrees, redness, or drainage should be reported to the office prior to your first office visit. ACTIVITY You may continue to progress activity as comfortably tolerated with your opposite arm. You may begin to use your elbow, wrist, and hand as directed in physical therapy. You should only remove your sling for bathing and to perform range of motion exercises for the hand, wrist, and elbow. Do not actively move your shoulder Continue to ice the shoulder several times per day until follow up. ANESTHESIA PRECAUTIONS You should not operate a vehicle, automobile, bicycle or motorcycle, machinery, or power tools, make any important decisions, or drink alcohol for 24 hours. It may be beneficial to have a responsible adult remain with you for your first 24 hours after surgery. You may be drowsy and light-headed. DRIVING Driving is legal, however, if you are involved in an accident, you must be able to prove that you maintained full control of your vehicle. For this reason, it is advised that you do not drive until your strength returns. PROBLEMS You should notify the office for any persistent or heavy bleeding, temperature above 101, redness, swelling, or drainage from the operative site, severe pain at the operative site, or the development of persistent vomiting. Eri Pelayo, DO [facility] [address], [place] [id number] Reviewed: Follow Up Care 10/21/2022 10:08:31 With:KATHY Duff Address: [address] [place] [address]- Business (1) When:12/06/2022 10:15:00 Comments:Keep scheduled appointment [facility] 03-09-2022 Note PROCEDURE: XR FOOT R T MIN 3 VIEWS COMPARISON: 02/15/2022 HISTORY: Pain in right foot FINDINGS: BONES:Stable fusion of the first metatarsal-phalangeal joint with placement of a spacer. No mechanical failure. Moderate enthesopathic spurring of the calcaneus. SOFT TISSUES:Negative. No visible soft tissue swelling. EFFUSION:None visible. OTHER: Negative. IMPRESSION: Stable first metatarsal-phalangeal joint fusion Electronically authenticated by: TRENT DELEON Date: 2022-03-09 18:56 [facility] 02-16-2022 Note PROCEDURE: XR FOOT R T MIN 3 VIEWS HISTORY: Pain in right foot COMPARISON: XR foot right 01/24/2022 FINDINGS: BONES:Mechanical fusion of and spacer placement within the first metatarsophalangeal joint. No hardware fracture or loosening. No bone fracture or dislocation. SOFT TISSUES:Mild soft tissue swelling. Skin michael and cast material have been removed. EFFUSION:None visible. OTHER: Negative. IMPRESSION: 1. Stable surgical changes without evidence of hardware failure or change in alignment. Electronically authenticated by: DOMENIC MORGAN Date: 2022-02-16 07:07 [facility] 02-15-2022 Hospital Discharge instructions Patient Education 02/15/2022 10:36:46 Arthritis, Wxfy-[id number] Arthritis Arthritis means joint pain. It can also mean joint disease. A joint is a place where bones come together. There are more than 100 types of arthritis. What are the causes? This condition may be caused by: Wear and tear of a joint. This is the most common cause. A lot of acid in the blood, which leads to pain in the joint (gout). Pain and swelling (inflammation) in a joint. Infection of a joint. Injuries in the joint. A reaction to medicines (allergy). In some cases, the cause may not be known. What are the signs or symptoms? Symptoms of this condition include: Redness at a joint. Swelling at a joint. Stiffness at a joint. Warmth coming from the joint. A fever. A feeling of being sick. How is this treated? This condition may be treated with: Treating the cause, if it is known. Rest. Raising (elevating) the joint. Putting cold or hot packs on the joint. Medicines to treat symptoms and reduce pain and swelling. Shots of medicines (cortisone) into the joint. You may also be told to make changes in your life, such as doing exercises and losing weight. Follow these instructions at home: Medicines Take [id number] and prescription medicines only as told by your doctor. Do not take aspirin for pain if your doctor says that you may have gout. Activity Rest your joint if your doctor tells you to. Avoid activities that make the pain worse. Exercise your joint regularly as told by your doctor. Try doing exercises like: ?Swimming. ?Water aerobics. ?Biking. ?Walking. Managing pain, stiffness, and swelling If told, put ice on the affected area. ?Put ice in a plastic bag. ?Place a towel between your skin and the bag. ?Leave the ice on for 20 minutes, 2 3 times per day. If your joint is swollen, raise (elevate) it above the level of your heart if told by your doctor. If your joint feels stiff in the morning, try taking a warm shower. If told, put heat on the affected area. Do this as often as told by your doctor. Use the heat source that your doctor recommends, such as a moist heat pack or a heating pad. If you have diabetes, do not apply heat without asking your doctor. To apply heat: ?Place a towel between your skin and the heat source. ?Leave the heat on for 20 30 minutes. ?Remove the heat if your skin turns bright red. This is very important if you are unable to feel pain, heat, or cold. You may have a greater risk of getting burned. General instructions Do not use any products that contain nicotine or tobacco, such as cigarettes, e-cigarettes, and chewing tobacco. If you need help quitting, ask your doctor. Keep all follow-up visits as told by your doctor. This is important. Contact a doctor if: The pain gets worse. You have a fever. Get help right away if: You have very bad pain in your joint. You have swelling in your joint. Your joint is red. Many joints become painful and swollen. You have very bad back pain. Your leg is very weak. You cannot control your pee (urine) or poop (stool). Summary Arthritis means joint pain. It can also mean joint disease. A joint is a place where bones come together. The most common cause of this condition is wear and tear of a joint. Symptoms of this condition include redness, swelling, or stiffness of the joint. This condition is treated with rest, raising the joint, medicines, and putting cold or hot packs on the joint. Follow your doctor's instructions about medicines, activity, exercises, and other home care treatments. This information is not intended to replace advice given to you by your health care provider. Make sure you discuss any questions you have with your health care provider. Document Released: 07/19/2010 Document Revised: 04/01/2019 Document Reviewed: 04/01/2019 [employer] Patient Education 2020 [employer]. Follow Up Care 01/17/2022 13:45:39 With:Sridhar GREENWOOD, MU Patel, PED Address: [address], [facility] [place] [address] [phone] When:6 months [facility] 01-24-2022 Note PROCEDURE: XR FOOT R T MIN 3 VIEWS, XR FOOT RT 2V HISTORY: Pain COMPARISON: XR foot right 11/24/2021 FINDINGS: BONES:Intraoperative images demonstrate mechanical fusion of the first metatarsophalangeal joint intervening spacer. Postoperative images demonstrate mechanical fusion of the first metatarsophalangeal joint via dorsal plate and screws, and spacer within the prior joint space. No hardware fracture or bone fracture. SOFT TISSUES:Postoperative images were obtained through cast material which slightly limits evaluation. EFFUSION:None visible. OTHER: Negative. IMPRESSION: 1. Spacer placement and mechanical fusion of the first metatarsophalangeal joint of the right foot. Electronically authenticated by: DOMENIC MORGAN Date: 2022-01-24 16:01 [facility] 01-24-2022 Note PROCEDURE: XR FOOT R T MIN 3 VIEWS, XR FOOT RT 2V HISTORY: Pain COMPARISON: XR foot right 11/24/2021 FINDINGS: BONES:Intraoperative images demonstrate mechanical fusion of the first metatarsophalangeal joint intervening spacer. Postoperative images demonstrate mechanical fusion of the first metatarsophalangeal joint via dorsal plate and screws, and spacer within the prior joint space. No hardware fracture or bone fracture. SOFT TISSUES:Postoperative images were obtained through cast material which slightly limits evaluation. EFFUSION:None visible. OTHER: Negative. IMPRESSION: 1. Spacer placement and mechanical fusion of the first metatarsophalangeal joint of the right foot. Electronically authenticated by: DOMENIC MORGAN Date: 2022-01-24 16:01 [facility] 11-25-2021 Note PROCEDURE: XR FOOT R T MIN 3 VIEWS COMPARISON: None. HISTORY: Pain FINDINGS: BONES:No acute fracture or dislocation. Arthroplasty base of the first proximal phalanx with degenerative changes involving the head of the first metatarsal. Moderate enthesopathic spurring of the calcaneus at the Achilles and plantar insertions SOFT TISSUES:Negative. No visible soft tissue swelling. EFFUSION:None visible. OTHER: Negative. IMPRESSION: Degenerative osteoarthritis Arthroplasty base of the first proximal phalanx Electronically authenticated by: TRENT DELEON Date: 2021-11-25 07:42 [facility] 10-15-2021 Hospital Discharge instructions Patient Education 10/15/2021 10:46:43 Obesity, Adult, [id number] Obesity, Adult Obesity is having too much body fat. Being obese means that your weight is more than what is healthy for you. BMI is a number that explains how much body fat you have. If you have a BMI of 30 or more, you are obese. Obesity is often caused by eating or drinking more calories than your body uses. Changing your lifestyle can help you lose weight. Obesity can cause serious health problems, such as: Stroke. Coronary artery disease (CAD). Type 2 diabetes. Some types of cancer, including cancers of the colon, breast, uterus, and gallbladder. Osteoarthritis. High blood pressure (hypertension). High cholesterol. Sleep apnea. Gallbladder stones. Infertility problems. What are the causes? Eating meals each day that are high in calories, sugar, and fat. Being born with genes that may make you more likely to become obese. Having a medical condition that causes obesity. Taking certain medicines. Sitting a lot (having a sedentary lifestyle). Not getting enough sleep. Drinking a lot of drinks that have sugar in them. What increases the risk? Having a family history of obesity. Being an woman. Being a man. Living in an area with limited access to: ?[place], recreation centers, or sidewalks. ?Healthy food choices, such as grocery stores and [employer]. What are the signs or symptoms? The main sign is having too much body fat. How is this treated? Treatment for this condition often includes changing your lifestyle. Treatment may include: ?Changing your diet. This may include making a healthy meal plan. ?Exercise. This may include activity that causes your heart to beat faster (aerobic exercise) and strength training. Work with your doctor to design a program that works for you. ?Medicine to help you lose weight. This may be used if you are not able to lose 1 pound a week after 6 weeks of healthy eating and more exercise. ?Treating conditions that cause the obesity. ?Surgery. Options may include gastric banding and gastric bypass. This may be done if: ?Other treatments have not helped to improve your condition. ?You have a BMI of 40 or higher. ?You have life-threatening health problems related to obesity. Follow these instructions at home: Eating and drinking Follow advice from your doctor about what to eat and drink. Your doctor may tell you to: ?Limit fast food, sweets, and processed snack foods. ?Choose low-fat options. For example, choose low-fat milk instead of whole milk. ?Eat 5 or more servings of fruits or vegetables each day. ?Eat at home more often. This gives you more control over what you eat. ?Choose healthy foods when you eat out. ?Learn to read food labels. This will help you learn how much food is in 1 serving. ?Keep low-fat snacks available. ?Avoid drinks that have a lot of sugar in them. These include soda, fruit juice, iced tea with sugar, and flavored milk. Drink enough water to keep your pee (urine) pale yellow. Do not go on fad diets. Physical activity Exercise often, as told by your doctor. Most adults should get up to 150 minutes of moderate-intensity exercise every week.Ask your doctor: ?What types of exercise are safe for you. ?How often you should exercise. Warm up and stretch before being active. Do slow stretching after being active (cool down). Rest between times of being active. Lifestyle Work with your doctor and a food expert (dietitian) to set a weight-loss goal that is best for you. Limit your screen time. Find ways to reward yourself that do not involve food. Do not drink alcohol if: ?Your doctor tells you not to drink. ?You are , may be , or are planning to become . If you drink alcohol: ?Limit how much you use to: ?0 1 drink a day for women. ?0 2 drinks a day for men. ?Be aware of how much alcohol is in your drink. In the [place] one drink equals one 12 oz bottle of beer (355 mL), one 5 oz glass of wine (148 mL), or one 1 oz glass of hard liquor (44 mL). General instructions Keep a weight-loss journal. This can help you keep track of: ?The food that you eat. ?How much exercise you get. Take gyvq-jdj-andsjsk and prescription medicines only as told by your doctor. Take vitamins and supplements only as told by your doctor. Think about joining a support group. Keep all follow-up visits as told by your doctor. This is important. Contact a doctor if: You cannot meet your weight loss goal after you have changed your diet and lifestyle for 6 weeks. Get help right away if you: Are having trouble breathing. Are having thoughts of harming yourself. Summary Obesity is having too much body fat. Being obese means that your weight is more than what is healthy for you. Work with your doctor to set a weight-loss goal. Get regular exercise as told by your doctor. This information is not intended to replace advice given to you by your health care provider. Make sure you discuss any questions you have with your health care provider. Document Released: 07/16/2012 Document Revised: 12/27/2018 Document Reviewed: 12/27/2018 [employer] Patient Education 2020 [employer]. 10/15/2021 10:46:40 Exercising to Lose Weight Exercising to Lose Weight Exercise is structured, repetitive physical activity to improve fitness and health. Getting regular exercise is important for everyone. It is especially important if you are overweight. Being overweight increases your risk of heart disease, stroke, diabetes, high blood pressure, and several types of cancer. Reducing your calorie intake and exercising can help you lose weight. Exercise is usually categorized as moderate or vigorous intensity. To lose weight, most people need to do a certain amount of moderate-intensity or vigorous-intensity exercise each week. Moderate-intensity exercise Moderate-intensity exercise is any activity that gets you moving enough to burn at least three times more energy (calories) than if you were sitting. Examples of moderate exercise include: Walking a mile in 15 minutes. Doing light yard work. Biking at an easy pace. Most people should get at least 150 minutes (2 hours and 30 minutes) a week of moderate-intensity exercise to maintain their body weight. Vigorous-intensity exercise Vigorous-intensity exercise is any activity that gets you moving enough to burn at least six times more calories than if you were sitting. When you exercise at this intensity, you should be working hard enough that you are not able to carry on a conversation. Examples of vigorous exercise include: Running. Playing a team sport, such as football, basketball, and soccer. Jumping rope. Most people should get at least 75 minutes (1 hour and 15 minutes) a week of vigorous-intensity exercise to maintain their body weight. How can exercise affect me? When you exercise enough to burn more calories than you eat, you lose weight. Exercise also reduces body fat and builds muscle. The more muscle you have, the more calories you burn. Exercise also: Improves mood. Reduces stress and tension. Improves your overall fitness, flexibility, and endurance. Increases bone strength. The amount of exercise you need to lose weight depends on: Your age. The type of exercise. Any health conditions you have. Your overall physical ability. Talk to your health care provider about how much exercise you need and what types of activities are safe for you. What actions can I take to lose weight? Nutrition Make changes to your diet as told by your health care provider or diet and rotating equipment specialist (dietitian). This may include: ?Eating fewer calories. ?Eating more protein. ?Eating less unhealthy fats. ?Eating a diet that includes fresh fruits and vegetables, whole grains, low-fat dairy products, and lean protein. ?Avoiding foods with added fat, salt, and sugar. Drink plenty of water while you exercise to prevent dehydration or heat stroke. Activity Choose an activity that you enjoy and set realistic goals. Your health care provider can help you make an exercise plan that works for you. Exercise at a moderate or vigorous intensity most days of the week. ?The intensity of exercise may vary from person to person. You can tell how intense a workout is for you by paying attention to your breathing and heartbeat. Most people will notice their breathing and heartbeat get faster with more intense exercise. Do resistance training twice each week, such as: ?Push-ups. ?Sit-ups. ?Lifting weights. ?Using resistance bands. Getting short amounts of exercise can be just as helpful as long structured periods of exercise. If you have trouble finding time to exercise, try to include exercise in your daily routine. ?Get up, stretch, and walk around every 30 minutes throughout the day. ?Go for a walk during your lunch break. ?Park your car farther away from your destination. ?If you take public transportation, get off one stop early and walk the rest of the way. ?Make phone calls while standing up and walking around. ?Take the stairs instead of elevators or escalators. Wear comfortable clothes and shoes with good support. Do not exercise so much that you hurt yourself, feel dizzy, or get very short of breath. Where to find more information [place] Department of Health and Human Services: www.hhs.gov Centers for Disease Control and Prevention (CDC): www.cdc.gov Contact a health care provider: Before starting a new exercise program. If you have questions or concerns about your weight. If you have a medical problem that keeps you from exercising. Get help right away if you have any of the following while exercising: Injury. Dizziness. Difficulty breathing or shortness of breath that does not go away when you stop exercising. Chest pain. Rapid heartbeat. Summary Being overweight increases your risk of heart disease, stroke, diabetes, high blood pressure, and several types of cancer. Losing weight happens when you burn more calories than you eat. Reducing the amount of calories you eat in addition to getting regular moderate or vigorous exercise each week helps you lose weight. This information is not intended to replace advice given to you by your health care provider. Make sure you discuss any questions you have with your health care provider. Document Released: 05/27/2011 Document Revised: 05/07/2018 Document Reviewed: 05/07/2018 [employer] Patient Education 2020 [employer]. 10/15/2021 10:46:36 BMI for Adults BMI for Adults Body mass index (BMI) is a number that is calculated from a person's weight and height. BMI may help to estimate how much of a person's weight is composed of fat. BMI can help identify those who may be at higher risk for certain medical problems. How is BMI used with adults? BMI is used as a screening tool to identify possible weight problems. It is used to check whether a person is obese, overweight, healthy weight, or underweight. How is BMI calculated? BMI measures your weight and compares it to your height. This can be done either in [place] ([place] or metric measurements. Note that charts are available to help you find your BMI quickly and easily without having to do these calculations yourself. To calculate your BMI in [place] ([place] measurements, your health care provider will: 1.Measure your weight in pounds (lb). 2.Multiply the number of pounds by 703. For example, for a person who weighs 180 lb, multiply that number by 703, which equals 126,540. 3.Measure your height in inches (in). Then multiply that number by itself to get a measurement called inches squared. For example, for a person who is 70 in tall, the inches squared measurement is 70 in x 70 in, which equals 4900 inches squared. 4.Divide the total from Step 2 (number of lb x 703) by the total from Step 3 (inches squared): 126,540 4900 = 25.8. This is your BMI. To calculate your BMI in metric measurements, your health care provider will: 1.Measure your weight in kilograms (kg). 2.Measure your height in meters (m). Then multiply that number by itself to get a measurement called meters squared. For example, for a person who is 1.75 m tall, the meters squared measurement is 1.75 m x 1.75 m, which is equal to 3.1 meters squared. 3.Divide the number of kilograms (your weight) by the meters squared number. In this example: 70 3.1 = 22.6. This is your BMI. How is BMI interpreted? To interpret your results, your health care provider will use BMI charts to identify whether you are underweight, normal weight, overweight, or obese. The following guidelines will be used: Underweight: BMI less than 18.5. Normal weight: BMI between 18.5 and 24.9. Overweight: BMI between 25 and 29.9. Obese: BMI of 30 and above. Please note: Weight includes both fat and muscle, so someone with a muscular build, such as an athlete, may have a BMI that is higher than 24.9. In cases like these, BMI is not an accurate measure of body fat. To determine if excess body fat is the cause of a BMI of 25 or higher, further assessments may need to be done by a health care provider. BMI is usually interpreted in the same way for men and women. Why is BMI a useful tool? BMI is useful in two ways: Identifying a weight problem that may be related to a medical condition, or that may increase the risk for medical problems. Promoting lifestyle and diet changes in order to reach a healthy weight. Summary Body mass index (BMI) is a number that is calculated from a person's weight and height. BMI may help to estimate how much of a person's weight is composed of fat. BMI can help identify those who may be at higher risk for certain medical problems. BMI can be measured using Palestinian measurements or metric measurements. To interpret your results, your health care provider will use BMI charts to identify whether you are underweight, normal weight, overweight, or obese. This information is not intended to replace advice given to you by your health care provider. Make sure you discuss any questions you have with your health care provider. Document Released: 01/03/2005 Document Revised: 04/06/2018 Document Reviewed: 03/07/2018 [employer] Patient Education [employer]. [facility] Evaluation + Plan note Future Appointments Appointment Date:11/15/2021 08:15:00 AM Scheduled Provider: [facility] Type:MA Screen () Appointment Date:10/11/2022 08:00:00 AM Scheduled Provider: Location:[facility] Appointment Type:FM Medicare Wellness Subsequent Future Scheduled TestsMA Mamm Screen w/CAD if perf and 3D [facility] 11/15/21 [facility] Evaluation + Plan note Future Appointments Appointment Date:10/11/2022 08:00:00 AM Scheduled Provider: Location:[facility] Appointment Type:FM Medicare Wellness Subsequent [facility] Evaluation + Plan note Future Appointments Appointment Date:10/17/2022 08:00:00 AM Scheduled Provider: Location:[facility] Appointment Type:FM Medicare Wellness Subsequent Appointment Date:10/19/2022 11:40:00 AM Scheduled Provider:Johnathon Waller DO Location:[facility] Appointment Type: Open Future Scheduled TestsBasic Metabolic Panel 02/15/22CBC w/ Auto Diff 02/15/22 [facility] Evaluation + Plan note Future Appointments Appointment Date:10/17/2022 08:00:00 AM Scheduled Provider: Location:[facility] Appointment Type:FM Medicare Wellness Subsequent Appointment Date:10/19/2022 11:40:00 AM Scheduled Provider:Johnathon Waller DO Location[place] Appointment Type:FM Open [facility] Evaluation + Plan note Future Appointments Appointment Date:11/21/2022 01:45:00 PM Scheduled Provider: Location:[facility] Appointment Type:Surgery FT [facility] Evaluation note Diagnosis History of reverse total replacement of right shoulder joint- Primary [facility] Diagnosis Encounter for Medicare annual wellness exam- Primary Preop examination Unspecified pre-operative examination Localized osteoarthritis of right shoulder Rotator cuff arthropathy of right shoulder Atherosclerosis of aorta Stage 2 chronic kidney disease Generalized osteoarthritis Generalized osteoarthrosis, involving multiple sites Class 1 obesity due to excess calories with body mass index (BMI) of 31.0 to 31.9 in adult, unspecified whether serious comorbidity present Hyperlipidemia, mixed Mixed hyperlipidemia Statin not tolerated Medicare annual wellness visit, subsequent- Primary Atherosclerosis of aorta Generalized osteoarthritis Generalized osteoarthrosis, involving multiple sites Hyperlipidemia, mixed Mixed hyperlipidemia BMI 30.0-30.9,adult Obesity (BMI 30.0-34.9) History of reverse total replacement of right shoulder joint- Primary [facility] Diagnosis Encounter for Medicare annual wellness exam- Primary Preop examination Unspecified pre-operative examination Localized osteoarthritis of right shoulder Rotator cuff arthropathy of right shoulder Atherosclerosis of aorta Stage 2 chronic kidney disease Generalized osteoarthritis Generalized osteoarthrosis, involving multiple sites Class 1 obesity due to excess calories with body mass index (BMI) of 31.0 to 31.9 in adult, unspecified whether serious comorbidity present Hyperlipidemia, mixed Mixed hyperlipidemia Statin not tolerated Medicare annual wellness visit, subsequent- Primary Atherosclerosis of aorta Generalized osteoarthritis Generalized osteoarthrosis, involving multiple sites Hyperlipidemia, mixed Mixed hyperlipidemia BMI 30.0-30.9,adult Obesity (BMI 30.0-34.9) Medicare annual wellness visit, subsequent- Primary Atherosclerosis of aorta Hyperlipidemia, mixed Mixed hyperlipidemia Chronic fatigue Other malaise and fatigue Encounter for screening mammogram for malignant neoplasm of breast Post menopausal syndrome Asymptomatic postmenopausal status (age-related) (natural) Encounter for follow-up examination after completed treatment for conditions other than malignant neoplasm BMI 29.0-29.9,adult Overweight [facility] Narrative No data available for this section [facility] Discharge instructions No data available for this section [facility] No data available for this section [facility] Summary Purpose Family History No Family History Records FoundNo Family History Records FoundNo Family History Records FoundNo Family History Records Found No data available for this section No Family History Records FoundNo Family History Records Found Advance Directives No Advanced Directives Records FoundNo Advanced Directives Records FoundNo Advanced Directives Records FoundNo Advanced Directives Records FoundNo Advanced Directives Records FoundNo Advanced Directives Records Found Additional Source Comments INFORMATION SOURCE (unrecogn ized section and content) DATE CREATED AUTHOR 11/24/2017 [facility] DATE CREATED AUTHOR AUTHOR'S ORGANIZ ATION 05/31/2021 [facility] DATE CREATED AUTHOR AUTHOR'S ORGANIZ ATION 03/12/2022 [facility] DATE CREATED AUTHOR AUTHOR'S ORGANIZ ATION 02/19/2023 [facility] [place] DATE CREATED AUTHOR AUTHOR'S ORGANIZ ATION 11/28/2024 [facility] EPIC DATE CREATED AUTHOR AUTHOR'S ORGANIZ ATION 01/18/2025 [facility] Care Team (unrecognized sect ion and content) Print Producer Relationship Specialty Start Date End Date Mignon Diallo MD [address] [place] [address] PCP - General Family Medicine 11/15/22 Print Producer Relationship Specialty Start Date End Date Mignon Diallo MD [address] [place] [id number] PCP - General Family Medicine 11/15/22 Print Producer Relationship Specialty Start Date End Date Mignon Diallo MD [address] [place] [address] PCP - General Family Medicine 11/15/22 Print Producer Relationship Specialty Start Date End Date Mignon Diallo MD [address] [place] [id number] PCP - General Family Medicine 11/15/22 Print Producer Relationship Specialty Start Date End Date Mignon Diallo MD [address] [place] [id number] PCP - General Family Medicine 11/15/22 Print Producer Relationship Specialty Start Date End Date Mignon Diallo MD [address] [place] [id number] PCP - General Family [facility] 11/15/22 Print Producer Relationship Specialty Start Date End Date Mignon Diallo MD [address] [place] [id number] PCP - General Family Medicine 11/15/22 Reason for Visit (unrecogniz ed section and content) Reason Comments Follow-up R [facility] Reason Comments Pain Reason Onset Date Comments Care Coordination 12/25/2024 FOR RECORDS PERTAINING TO PATIENTS WHO ARE OR HAVE BEEN ENROLLED IN A CHEMICAL DEPENDENCY/SUBSTANCEABUSE PROGRAM, SOME INFORMATION MAY BE OMITTED. This clinical summary was aggregated from multiple sources. Caution should be exercised in using it in the provision of clinical care. This summary normalizes information from multiple sources, and as a consequence, information in this document may materially change the coding, format and clinical context of patient data. In addition, data may be omitted in some cases. CLINICAL DECISIONS SHOULD BE BASED ON THE PRIMARY CLINICAL RECORDS. [employer] [facility]. provides no warranty or guarantee of the accuracy or completeness of information in this document.
== END 2025-01-30 09:03 | disposition home or self-care (01) ==
LOC: RAD 09:03
PROVIDERS: PCP Student in an Organized Health Care Education/Training Program; Visit Provider Podiatrist Foot & Ankle Surgery
DX: M79.671 Pain in right foot (principal)
CPT/HCPCS: 73630